=== PATIENT | female | born 1950 | race Caucasian/White ===

== ENCOUNTER 2021-04-02 10:33 | Outpatient (CLI) | payer MEDICARE, SELFPAY ==
--- NOTE | 2021-04-02 11:26 | N.ONRAD NP_ITS ---
Radiation Oncology Consultation Patient Name: Teresa Eid Date of : 1950 Date of Service: 04/02/2021 Attending Physician: Alvaro Mcfadden M.D. Teresa Eid was seen in consultation this morning at the request of Marcus. Hernandez D.O. for consideration of adjuvant breast radiotherapy for the management of a recently diagnosed early stage breast cancer. A diagnostic mammogram ordered on December 11, 2020 because of a palpable right breast mass identified architectural distortion measuring 4 cm the 10 o'clock position 5 to 6 cm from the nipple. Ultrasonography confirmed a hypoechoic lesion with posterior acoustic shadowing within the right breast at the 10 o'clock position, 10 cm from the nipple, measuring 3.3 cm x 2.5 cm x 4.8 cm. No suspicious adenopathy was described. An ultrasound-guided core biopsy completed on January 01, 2021 diagnosed a grade II invasive lobular carcinoma associated with a small foci of LCIS. The breast cancer prognostic profile revealed estrogen receptor (100%) and progesterone receptor (100%) positivity while negative for HER2 (by IHC). An MRI of the breasts requested on January 18, 2021 revealed an 8 cm x 4 cm x 4.7 cm mass within the right breast, 8 cm from the nipple that corresponded to the biopsy-proven lesion. No suspicious enhancing masses reported in the left breast. A bilateral simple mastectomy with right axillary sentinel lymph node biopsy was performed by Marcus. Hernandez D.O. at [facility] in [place], [place] on February 01, 2021. The pathology report (requested from the outside hospital and personally reviewed in [facility]) confirmed a 5.2 cm, grade 2 invasive lobular carcinoma with LCIS present. Surgical margins were negative. A total of two sentinel lymph nodes were harvested with one macrometastasis measuring 6 mm with extranodal extension identified. A right axillary lymph node dissection of levels I and II was completed on February 20, 2021. An additional 21 benign lymph nodes were identified. She was evaluated today for adjuvant radiotherapy. I discussed the [place] [employer] on Cancer Staging and specifically the patient's pathologic stage IIA (T3N1a) breast cancer, I also reviewed the National Comprehensive Cancer Network Guidelines endorsing adjuvant radiotherapy and summarized the classic studies by the [place] [employer] [facility] [facility] and the Early Breast Cancer Trialists??? Collaborative Group. She is aware that these studies demonstrated an overall survival improvement in patients treated with post-mastectomy radiotherapy. Before initiation of treatment, I will order an Oncotype DX recurrence score as per NCCN Guidelines I would recommend a 5 week course of chest wall and regional lymph node radiotherapy. A computed tomographic scan with contrast in the treatment position will be acquired for radiotherapy planning. The potential toxicities of postmastectomy radiotherapy were also addressed. The patient has verbalized understanding would like to proceed as recommended. The patient???s medical treatment has been discussed with Sammy Ng D.O. Signed by: Dr. Alvaro Mcfadden 04/02/2021 11:26:10 AM
== END 2021-04-02 10:34 | disposition home or self-care (01) ==
LOC: ONCMED 10:42
PROVIDERS: PCP Family Medicine; Visit Provider Radiology Radiation Oncology
DX: C50.911 Malignant neoplasm of unspecified site of right female breast (principal)
CPT/HCPCS: 99205

== ENCOUNTER → 2021-04-29 13:45 | Outpatient (BNVA) | payer MEDICARE, SELFPAY | PROVIDERS: PCP Family Medicine; Visit Provider Radiology Radiation Oncology | DX: C50.919 Malignant neoplasm of unspecified site of unspecified female breast (principal) | CPT/HCPCS: 80053; 85025 ==

== ENCOUNTER 2021-05-20 07:24 | Outpatient (RCR) | payer MEDICARE, SELFPAY ==
--- NOTE | 2021-05-02 | CT_ITS ---
Radiation Therapy Planning CT images; total exam DLP: 629.25 mGy-cm MTDD
[2021-05-02] MEDS: iodixanol 320 mg/mL 100mL Btl (RAD THERAPY ONLY) IV (10:33)
--- NOTE | 2021-05-06 18:05 | ONC CON_ITS ---
Dr. Ovalles New Patient Note Patient: Teresa Eid Unit #: [id number]: 1950 Dicatated By: Chen Ovalles M.D.Date of Visit: May 06, 2021 Onc MED New Patient/Consult Referring Physician: Dr. Sammy gN D.O. History of Present Illness: Ms. Teresa Eid, is a 70-year-old female with month-long history of right breast mass, as per patient she never had mammogram done in the past until on December 11, 2020 which showed architectural distortion measuring 4 cm at 10 o'clock position, ultrasound confirmed a hypoechoic lesion with posterior acoustic shadowing within the right breast measuring 3.3 x 2.5 x 4.8 cm, subsequently underwent ultrasound-guided core biopsy on January 01, 2021 which confirmed grade 2 invasive lobular carcinoma associated with small foci of LCIS, ER 100% positive OK 100% positive and HER-2/collette negative. On January 18, 2021 she underwent MRI scan of the bilateral breast which confirmed 8 cm x 4 cm x 4.7 cm mass within the right breast, 8 cm from the nipple and no suspicious enhancing mass reported in the left breast ,Subsequently underwent bilateral mastectomy with right sentinel lymph node biopsy on February 01, 2021 and final pathology report showed ER 97% positive OK 91% positive, HER-2/collette negative, Confirmed 5.2 cm invasive lobular carcinoma with LCIS present with clear surgical margin, 2 lymph nodes were identified with 1 confirmed macrometastasis measuring 6 mm with extranodal extension. Subsequently underwent right axillary lymph node dissection of level 1 and 2 done on February 20, 2021 and additional 21 lymph nodes were removed and showed no evidence of malignancy, pathological stage IIa, (T3N1a) Patient denies any specific complaint except mild discomfort in her right anterior/axillary area since surgery but no overlying skin changes, denies any fever chills, denies any nausea or vomiting denies any diarrhea or constipation, denies any weight loss, patient has already seen radiation oncology and postmastectomy radiation therapy to right chest wall and regional lymph node is under consideration. Past Medical History: Ms. iEd's medical history consists of calculus of kidney, cerebrovascular disease, chronic renal insufficiency, gastroesophageal reflux disease, history of shingles, hypertension, post herpetic neuralgia, restless leg syndrome, and stroke (x3). Past Surgical History: Ms. Eid's surgical/procedural history consists of appendectomy, bladder suspension, breast biopsy, cataract excision, hysterectomy, knee arthroscopy, mastectomy - bilateral, and total knee arthroplasty. Medications: Aspirin 1 Tablet (of 81 mg) Tablet, enteric coated Oral daily, Gabapentin 2 Capsule (of 300 mg) Oral t.i.d. Allergies: No Known Allergies. Social History: Ms. Eid is single. Ms. Eid no longer smokes but had smoked 1.0 pack/day. She has no history of drinking. quit smoking in 1974. Family History: There is no documented family history. Review Of Symptoms: Review of Systems is not available for this patient. Vital Signs: Performed on May 06, 2021 16:20: 3, 0, 32.35 (HIGH), 1.77 sq.m, 61.00 in, 95 % (LOW), 82 /min, 18 /min, 136/86 mm(hg), 97.2 F (LOW), and 171.2 lbs (HIGH). Performance Status: 0 - Fully active, able to carry on all predisease activities without restrictions. (ECOG) Physical Examination: Respiratory - Lungs are clear to auscultation, Cardiovascular - Regular rate and rhythm of heart, Breasts - Bilateral mastectomy, with Well-healed scars, Gastrointestinal - Soft, bowel sounds present, Extremities - No visible edema. Lab/Imaging: Most recent lab results are not available for this patient. Impression: Grade 2, invasive lobular carcinoma with LCIS per bilateral mastectomy done February 01, 2021 showed 5.2 cm invasive mass with LCIS, clear surgical margins 1/2 lymph node positive for metastatic disease, macro metastasis measuring 6 mm with extranodal extension, subsequently underwent right axillary lymph node dissection of level 1 and 2 and 21 lymph nodes were identified showed no evidence of metastatic disease. Pathological stage IIa (T3 N1a,MX) Arthritis, chronic renal insufficiency Cerebrovascular disease, strokes x3 last one in 2001. GERD HTN Post herpetic neuralgia Restless leg syndrome Plan: Discussed with patient regarding her disease status and treatment options, patient has stage IIa disease with the right breast primary being more than 5 cm,And positive lymph node, underwent bilateral mastectomy,Including prophylactic left simple mastectomy., Oncotype DX was done on April 15, 2021 which shows recurrence score of 3 means no apparent benefit from chemotherapy and distant recurrence risk at 9-year with hormone therapy is about 10%. Based on her Oncotype DX report, we will recommend adjuvant therapy with aromatase inhibitor, Arimidex 1 mg p.o. daily for 5 years, as patient has history of arthritis and sometimes in some patient Arimidex can cause musculoskeletal discomfort, so we will try it for 1 month, if tolerated we will continue for total 5 years if not, we may switch her to another agent. Patient has already seen radiation oncology for postmastectomy radiation therapy for tumor size more than 5 cm, probably will be starting within this week. All the side effect possible benefits associated with hormonal therapy especially with Arimidex were discussed in detail including but not limited to, hot flashes, musculoskeletal discomfort, bone demineralization, mood swings, were mentioned, further teaching will be done by chemotherapy nurse, Patient will return to clinic in 1 month with CBC CMP Signed By: Chen Ovalles M.D. <<Signature on File>>
--- NOTE | 2021-05-14 15:26 | ONCRAD TMN_ITS ---
Radiation Oncology Treatment Management Note Patient Name: Teresa Eid Date of : 1950 Date of Service: 05/14/2021 Attending Physician: Alvaro Mcfadden M.D. Teresa Eid is a 70 year-old white female diagnosed with a pathologic stage IIA (T3N1a) lobular carcinoma of the right breast. A diagnostic mammogram ordered on December 11, 2020 because of a palpable right breast mass identified architectural distortion measuring 4 cm the 10 o'clock position 5 to 6 cm from the nipple. Ultrasonography confirmed a hypoechoic lesion with posterior acoustic shadowing within the right breast at the 10 o'clock position, 10 cm from the nipple, measuring 3.3 cm x 2.5 cm x 4.8 cm. No suspicious adenopathy was described. An ultrasound-guided core biopsy completed on January 01, 2021 diagnosed a grade II invasive lobular carcinoma associated with a small foci of LCIS. The breast cancer prognostic profile revealed estrogen receptor (100%) and progesterone receptor (100%) positivity while negative for HER2 (by IHC). An MRI of the breasts requested on January 18, 2021 revealed an 8 cm x 4 cm x 4.7 cm mass within the right breast, 8 cm from the nipple that corresponded to the biopsy-proven lesion. No suspicious enhancing masses reported in the left breast. A bilateral simple mastectomy with right axillary sentinel lymph node biopsy was performed by Marcus. Hernandez D.O. at [facility] in [place], [place] on February 01, 2021. The pathology report confirmed a 5.2 cm, grade 2 invasive lobular carcinoma with LCIS present. Surgical margins were negative. A total of two sentinel lymph nodes were harvested with one macrometastasis measuring 6 mm with extranodal extension identified. A right axillary lymph node dissection of levels I and II was completed on February 20, 2021. An additional 21 benign lymph nodes were identified. She has received 10 Gy of a prescribed 50 Gy delivered with a 3D conformal radiotherapy plan utilizing opposed tangential portal pina matched to supraclavicular fossa and PAB ports. Upon review of systems, she denied any complaints related to radiotherapy. On physical examination, the patient weighed 168 lbs. Her temperature was 96.8 ???F and the blood pressure was 133/89 mmHg. Her pulse was 90 bpm and her respiratory rate was 20. There was no erythema within the treatment pina of the left chest wall. Continue right chest wall and regional lymph node irradiation as prescribed. Signed by: Dr. Alvaro Mcfadden 05/14/2021 3:25:32 PM
== END 2021-05-20 23:59 | disposition home or self-care (01) ==
LOC: ONCMED 07:24
PROVIDERS: PCP Family Medicine; Visit Provider Radiology Radiation Oncology
DX: Z51.0 Encounter for antineoplastic radiation therapy (principal); C50.411 Malignant neoplasm of upper-outer quadrant of right female breast; Z17.0 Estrogen receptor positive status [ER+]; Z90.13 Acquired absence of bilateral breasts and nipples; M19.90 Unspecified osteoarthritis, unspecified site; N28.9 Disorder of kidney and ureter, unspecified; K21.9 Gastro-esophageal reflux disease without esophagitis; I10 Essential (primary) hypertension; G58.8 Other specified mononeuropathies; G25.81 Restless legs syndrome; Z86.73 Personal history of transient ischemic attack (TIA), and cerebral infarction without residual deficits; Z79.899 Other long term (current) drug therapy; Z79.811 Long term (current) use of aromatase inhibitors
CPT/HCPCS: 77290; 77295; 77300; 77334; 77387; 77412; 99205; Q9967

== ENCOUNTER 2021-06-12 06:48 | Outpatient (RCR) | payer MEDICARE, SELFPAY ==
--- NOTE | 2021-05-21 15:26 | ONCRAD TMN_ITS ---
Radiation Oncology Treatment Management Note Patient Name: Teresa Eid Date of : 1950 Date of Service: 05/21/2021 Attending Physician: Alvaro Mcfadden M.D. Teresa Eid is a 70 year-old white female diagnosed with a pathologic stage IIA (T3N1a) lobular carcinoma of the right breast. A diagnostic mammogram ordered on December 11, 2020 because of a palpable right breast mass identified architectural distortion measuring 4 cm the 10 o'clock position 5 to 6 cm from the nipple. Ultrasonography confirmed a hypoechoic lesion with posterior acoustic shadowing within the right breast at the 10 o'clock position, 10 cm from the nipple, measuring 3.3 cm x 2.5 cm x 4.8 cm. No suspicious adenopathy was described. An ultrasound-guided core biopsy completed on January 01, 2021 diagnosed a grade II invasive lobular carcinoma associated with a small foci of LCIS. The breast cancer prognostic profile revealed estrogen receptor (100%) and progesterone receptor (100%) positivity while negative for HER2 (by IHC). An MRI of the breasts requested on January 18, 2021 revealed an 8 cm x 4 cm x 4.7 cm mass within the right breast, 8 cm from the nipple that corresponded to the biopsy-proven lesion. No suspicious enhancing masses reported in the left breast. A bilateral simple mastectomy with right axillary sentinel lymph node biopsy was performed by Marcus. Hernandez D.O. at [facility] in [place], [place] on February 01, 2021. The pathology report confirmed a 5.2 cm, grade 2 invasive lobular carcinoma with LCIS present. Surgical margins were negative. A total of two sentinel lymph nodes were harvested with one macrometastasis measuring 6 mm with extranodal extension identified. A right axillary lymph node dissection of levels I and II was completed on February 20, 2021. An additional 21 benign lymph nodes were identified. She has received 18 Gy of a prescribed 50 Gy delivered with a 3D conformal radiotherapy plan utilizing opposed tangential portal pina matched to supraclavicular fossa and PAB ports. Upon review of systems, she denied any complaints related to radiotherapy. On physical examination, the patient weighed 168 lbs. Her temperature was 98.3 ???F and the blood pressure was 155/88 mmHg. Her pulse was 74 bpm and the respiratory rate was 20. There was no erythema within the treatment pina of the left chest wall. Continue right chest wall and regional lymph node irradiation as planned. Signed by: Dr. Alvaro Mcfadden 05/21/2021 3:24:54 PM
--- NOTE | 2021-05-28 15:37 | ONCRAD TMN_ITS ---
Radiation Oncology Treatment Management Note Patient Name: Teresa Eid Date of : 1950 Date of Service: 05/28/2021 Attending Physician: Alvaro Mcfadden M.D. Teresa Eid is a 70 year-old white female diagnosed with a pathologic stage IIA (T3N1a) lobular carcinoma of the right breast. A diagnostic mammogram ordered on December 11, 2020 because of a palpable right breast mass identified architectural distortion measuring 4 cm the 10 o'clock position 5 to 6 cm from the nipple. Ultrasonography confirmed a hypoechoic lesion with posterior acoustic shadowing within the right breast at the 10 o'clock position, 10 cm from the nipple, measuring 3.3 cm x 2.5 cm x 4.8 cm. No suspicious adenopathy was described. An ultrasound-guided core biopsy completed on January 01, 2021 diagnosed a grade II invasive lobular carcinoma associated with a small foci of LCIS. The breast cancer prognostic profile revealed estrogen receptor (100%) and progesterone receptor (100%) positivity while negative for HER2 (by IHC). An MRI of the breasts requested on January 18, 2021 revealed an 8 cm x 4 cm x 4.7 cm mass within the right breast, 8 cm from the nipple that corresponded to the biopsy-proven lesion. No suspicious enhancing masses reported in the left breast. A bilateral simple mastectomy with right axillary sentinel lymph node biopsy was performed by Marcus. Hernandez D.O. at [facility] in [place], [place] on February 01, 2021. The pathology report confirmed a 5.2 cm, grade 2 invasive lobular carcinoma with LCIS present. Surgical margins were negative. A total of two sentinel lymph nodes were harvested with one macrometastasis measuring 6 mm with extranodal extension identified. A right axillary lymph node dissection of levels I and II was completed on February 20, 2021. An additional 21 benign lymph nodes were identified. She has received 28 Gy of a prescribed 50 Gy delivered with a 3D conformal radiotherapy plan utilizing opposed tangential portal pina matched to supraclavicular fossa and PAB ports. Upon review of systems, she denied any complaints related to radiotherapy. On physical examination, the patient weighed 165 lbs. Her temperature was 97.6 ???F and the blood pressure was 138/90 mmHg. Her pulse was 64 bpm and the respiratory rate was 16. There was no erythema within the treatment pina of the right chest wall. Continue right chest wall and regional lymph node irradiation as prescribed. Signed by: Dr. Alvaro Mcfadden 05/28/2021 3:35:37 PM
[2021-06-03 14:55] LABS: Basophils % 0.4 %; Eosinophils # 0.2 10^3/uL (0.0-0.8); Eosinophils % 3.3 %; Hematocrit 40.7 % (37.0-47.0); Hemoglobin 12.5 g/dL (11.5-15.3); Lymphocytes # 0.7 10^3/uL (0.8-4.8); Lymphocytes % 11.4 %; Mean Corpuscular HGB Conc 30.7 g/dL (30.0-36.0); Mean Corpuscular Hemoglobin 28.5 pg (28.0-34.0); Mean Corpuscular Volume 92.7 fl (81-99); Mean Platelet Volume 11.3 fL (7.4-10.4); Monocytes # 0.7 10^3/uL (0.2-0.9); Monocytes % 11.8 %; Neutrophils # 4.15 10^3/uL (1.8-7.7); Neutrophils % 72.9 %; Nucleated Red Blood Cells % 0 %; Platelet Count 250 10^3/cmm (130-400); Red Blood Count 4.39 10^6/uL (4.1-5.3); Red Cell Distribution Width 14.3 % (12.1-15.1); White Blood Count 5.7 10^3/uL (4.0-10.0)
[2021-06-03 15:28] LABS: Alanine Aminotransferase 15 U/L (0-33); Albumin Level 4.2 g/dL (3.5-5.2); Alkaline Phosphatase 73 IU/L (35-105); Blood Urea Nitrogen 21 mg/dL (8-23); Calcium 9.8 mg/dL (8.5-10.5); Carbon Dioxide 28 mmol/L (22-29); Chloride 103 mmol/L (98-107); Globulin 3.8 g/dL (1.3-4.6); Glomerular Filtration Rate 71.1 mL/min (90-130); Glucose 105 mg/dL (65-115); Osmolality Calculated 295 mOsm/kg (285-295); Sodium 141 mmol/L (136-145); Total Bilirubin 0.2 mg/dL (0.15-1.2)
[2021-06-03 15:29] LABS: Aspartate Amino Transferase 25 U/L (0-32)
--- NOTE | 2021-06-04 13:38 | ONCRAD TMN_ITS ---
Radiation Oncology Weekly Treatment Management Patient: Stanton Diego MR#: [id number] : 1950> Attending Physician: Dr. Dom Gates Date of Service: 06/04/2021 Referring Physician(s) : Dr. Sammy Ng Diagnosis: C50.411 - Malignant neoplasm of upper-outer quadrant of right female breast, Diagnosed 01/01/2021 (Active) Stage IIA, T3, pN1a, M0, G2, HER2 Neg, ER Pos, WV P Radiotherapy to date: Course: PMRT 2021, Treatment Site: PMRT - Rt Chest Wall, Ref. ID: [id number], Energy: 15X/6X, Dose/Fx (cGy): 200, #Fx: 25, Dose Correction (cGy): 0, Total Dose (cGy): 3,800, Start Date: 05/08/2021, End Date: 06/04/2021, Elapsed Days: 27 Treatment Site: Rt Supraclavicular Fossa, Ref. ID: [id number], Energy: 15X, Dose/Fx (cGy): 200, #Fx: 25, Dose Correction (cGy): 0, Total Dose (cGy): 3,800, Start Date: 05/08/2021, End Date: 06/04/2021, Elapsed Days: 27 Reason for visit: The patient is being seen today as part of their regularly scheduled weekly on treatment visits to assess for acute toxicities from radiotherapy. Review of Systems: Energy level and appetite are normal. No unusual pain. No complaints in the treatment area. Vital Signs: Physical Exam: The right chest wall has no significant erythema. No surface lesions in the area. Palpation of the skin reveals no tenderness. No subcutaneous nodularity. The surgical scar is intact. There is slight generalized firmness of the tissue in the area. (The patient states the induration is slowly improving). The right arm has an excellent range of motion. There is no right axillary lymphadenopathy. No lymphedema. Imaging: Radiation therapy imaging related to accurate target localization (i.e. KV, MV and CBCT) was reviewed. Appropriate changes, if any, were made to ensure treatment accuracy. Plan: Continue treatment according to prescription. Signed by: Dr. Dom Gates 06/04/2021 1:36:47 PM
--- NOTE | 2021-06-04 13:41 | ONC FU_ITS ---
Dr. Ovalles follow up note Patient: Teresa Eid < Unit #: [id number]: 1950 Dicatated By: Chen Ovalles M.D.Date of Visit:Jun 04, 2021 Onc Med Follow-up/Prog Note History of Present Illness: Ms. Teresa Eid, is a 70-year-old female with month-long history of right breast mass, as per patient she never had mammogram done in the past until on December 11, 2020 which showed architectural distortion measuring 4 cm at 10 o'clock position, ultrasound confirmed a hypoechoic lesion with posterior acoustic shadowing within the right breast measuring 3.3 x 2.5 x 4.8 cm, subsequently underwent ultrasound-guided core biopsy on January 01, 2021 which confirmed grade 2 invasive lobular carcinoma associated with small foci of LCIS, ER 100% positive MN 100% positive and HER-2/collette negative. On January 18, 2021 she underwent MRI scan of the bilateral breast which confirmed 8 cm x 4 cm x 4.7 cm mass within the right breast, 8 cm from the nipple and no suspicious enhancing mass reported in the left breast ,Subsequently underwent bilateral mastectomy with right sentinel lymph node biopsy on February 01, 2021 and final pathology report showed ER 97% positive MN 91% positive, HER-2/collette negative, Confirmed 5.2 cm invasive lobular carcinoma with LCIS present with clear surgical margin, 2 lymph nodes were identified with 1 confirmed macrometastasis measuring 6 mm with extranodal extension. Subsequently underwent right axillary lymph node dissection of level 1 and 2 done on February 20, 2021 and additional 21 lymph nodes were removed and showed no evidence of malignancy, pathological stage IIa, (T3N1a) , Oncotype DX score is 3, started on Arimidex 1 mg p.o. daily for 5 years on 08/03/2021 Came for follow-up, denies any specific complaints, no fever chills, no nausea or vomiting, no diarrhea constipation, no worsening of mild musculoskeletal discomfort, tolerating daily Arimidex well, also radiation therapy to right chest wall. Medications: Aspirin 1 Tablet (of 81 mg) Tablet, enteric coated Oral daily, Gabapentin 2 Capsule (of 300 mg) Oral t.i.d. Allergies: No Known Allergies. Review of Systems: Review of Systems is not available for this patient. Vital Signs: Vitals are not available for this patient. Performance Status: 0 - Fully active, able to carry on all predisease activities without restrictions. (ECOG) Physical Examination: Respiratory - Lungs are clear to auscultation, Cardiovascular - Regular rate and rhythm of heart, Gastrointestinal - Soft, bowel sounds present, Extremities - No visible edema. Lab/Imaging: Most recent lab results are not available for this patient. Impression: Grade 2, invasive lobular carcinoma with LCIS per bilateral mastectomy done February 01, 2021 showed 5.2 cm invasive mass with LCIS, clear surgical margins 1/2 lymph node positive for metastatic disease, macro metastasis measuring 6 mm with extranodal extension, subsequently underwent right axillary lymph node dissection of level 1 and 2 and 21 lymph nodes were identified showed no evidence of metastatic disease. Pathological stage IIa (T3 N1a,MX) ER 100% positive MN 100% positive and HER-2/collette negative. Oncotype DX score is 3, started on Arimidex 1 mg p.o. daily for 5 years on 08/03/2021 Postmastectomy radiation therapy Arthritis, chronic renal insufficiency Cerebrovascular disease, strokes x3 last one in 2001. GERD HTN Post herpetic neuralgia Restless leg syndrome Plan: Discussed with patient regarding her labs white blood count 5.7 hemoglobin 12.5 hematocrit 40.7 platelets 250,000 CMP within normal limits Clinically, patient doing well with no new signs suggestive of recurrence of disease, tolerating Arimidex 1 mg p.o. daily well, patient was advised to add vitamin D/calcium supplement. She is also receiving radiation therapy to her right breast, tolerating well. We will give her prescription for Arimidex 1 mg p.o. daily and then she will return to clinic in 3 months with CBC CMP. Signed By: Chen Ovalles M.D. <<Signature on File>>
--- NOTE | 2021-06-11 15:22 | ONCRAD TMN_ITS ---
Radiation Oncology Treatment Management Note Patient Name: Teresa Eid Date of : 1950 Date of Service: 06/11/2021 Attending Physician: Alvaro Mcfadden M.D. Teresa Eid is a 70 year-old white female diagnosed with a pathologic stage IIA (T3N1a) lobular carcinoma of the right breast. A diagnostic mammogram ordered on December 11, 2020 because of a palpable right breast mass identified architectural distortion measuring 4 cm the 10 o'clock position 5 to 6 cm from the nipple. Ultrasonography confirmed a hypoechoic lesion with posterior acoustic shadowing within the right breast at the 10 o'clock position, 10 cm from the nipple, measuring 3.3 cm x 2.5 cm x 4.8 cm. No suspicious adenopathy was described. An ultrasound-guided core biopsy completed on January 01, 2021 diagnosed a grade II invasive lobular carcinoma associated with a small foci of LCIS. The breast cancer prognostic profile revealed estrogen receptor (100%) and progesterone receptor (100%) positivity while negative for HER2 (by IHC). An MRI of the breasts requested on January 18, 2021 revealed an 8 cm x 4 cm x 4.7 cm mass within the right breast, 8 cm from the nipple that corresponded to the biopsy-proven lesion. No suspicious enhancing masses reported in the left breast. A bilateral simple mastectomy with right axillary sentinel lymph node biopsy was performed by Marcus. Hernandez D.O. at [facility] in [place], [place] on February 01, 2021. The pathology report confirmed a 5.2 cm, grade 2 invasive lobular carcinoma with LCIS present. Surgical margins were negative. A total of two sentinel lymph nodes were harvested with one macrometastasis measuring 6 mm with extranodal extension identified. A right axillary lymph node dissection of levels I and II was completed on February 20, 2021. An additional 21 benign lymph nodes were identified. She has received 48 Gy of a prescribed 50 Gy delivered with a 3D conformal radiotherapy plan utilizing opposed tangential portal pina matched to supraclavicular fossa and PAB ports. Upon review of systems, she denied any complaints related to radiotherapy. On physical examination, the patient weighed 166 lbs. Her temperature was 97.7 ???F and the blood pressure was 151/97 mmHg. Her pulse was 77 bpm and the respiratory rate was 20. There was a grade I erythema within the treatment pina of the right chest wall. Continue right chest wall and regional lymph node irradiation as planned. Signed by: Dr. Alvaro Mcfadden 06/11/2021 3:20:51 PM
--- NOTE | 2021-06-12 14:51 | N.ONRD TS_ITS ---
Radiation OncologyTreatment Summary Patient Name: Teresa Eid Date of : 1950 Date of Service: 06/12/2021 Attending Physician: Alvaro Mcfadden M.D. Teresa Eid has completed post-mastectomy radiotherapy for the adjuvant management of a pathological stage IIA (T3N1a) lobular carcinoma of the right breast. A diagnostic mammogram ordered on December 11, 2020 because of a palpable right breast mass identified architectural distortion measuring 4 cm at the 10 o'clock position 5 to 6 cm from the nipple. Ultrasonography confirmed a hypoechoic lesion with posterior acoustic shadowing within the right breast at the 10 o'clock position, 10 cm from the nipple, measuring 3.3 cm x 2.5 cm x 4.8 cm. No suspicious adenopathy was described. An ultrasound-guided core biopsy completed on January 01, 2021 diagnosed a grade II, invasive lobular carcinoma associated with a small foci of LCIS. The breast cancer prognostic profile revealed estrogen receptor (100%) and progesterone receptor (100%) positivity while negative for HER2 (by IHC). An MRI of the breasts requested on January 18, 2021 revealed an 8 cm x 4 cm x 4.7 cm mass within the right breast, 8 cm from the nipple that corresponded to the biopsy-proven lesion. No suspicious enhancing masses reported in the left breast. A bilateral simple mastectomy with right axillary sentinel lymph node biopsy was performed by Marcus. Hernandez D.O. at [facility] in [place], [place] on February 01, 2021. The pathology report confirmed a 5.2 cm, grade 2 invasive lobular carcinoma with LCIS present. Surgical margins were negative. A total of two sentinel lymph nodes were harvested with one macrometastasis measuring 6 mm with extranodal extension identified. A right axillary lymph node dissection of levels I and II was completed on February 20, 2021. An additional 21 benign lymph nodes were identified. Daily radiotherapy was administered between the dates of May 08, 2021 through June 12, 2021. A prescribe dose of 50 Gy was delivered in 25 fractions encompassing 36 elapsed days. The right chest wall and regional lymph nodes were treated utilizing a 3-dimensional conformal radiotherapy plan with an opposed tangential portal field design matched to a supraclavicular and a posterior axillary boost pina. The medial tangential field utilized a 48??? gantry angle with an associated collimator angle of 0???. The field size measured 13 cm x 1.5 cm within the X-direction and 15 cm x 0 cm within the Y-direction. The measured SSD was 90.9 cm with the field delivering 94 monitor units with 15 MV energy photons. Complementary pina were incorporated in a tepoc-jk-sfvrn approach that apportioned 11 MU and 9 MU. An additional medial tangent port was incorporated with low energy photons allotting 23 MU. The lateral tangential field employed a gantry angle of 228??? and an associated collimator angle of 0???. The field size measured 1.5 cm x 13 cm within X-direction and 15 cm x 0 cm within the Y-direction. The measured SSD was 84.9 cm with the field administering 58 monitor units. An additional lateral tangential pina were arranged using a trpmj-vb-fnwmd technique allocating 5 MU, 7 MU, and 9 MU. An accessory lateral field was planned with 6 MV photon energy distributing 24 MU. The supraclavicular portal field utilized an JAZMIN port with a gantry angle of 15??? and an associated collimator angle 0???. The port size measured 8 cm x 6.9 cm within the X-direction and 0 cm x 7.5 cm within the Y-direction. The measured SSD was 93.5 cm with the port apportioning 166 monitor units with 15 MV photons prescribed. A supplemental field incorporated a wxcuz-jv-dyuxw technique was designed. An additional 21 monitor units were delivered. The posterior axillary boost field applied a gantry angle of 180??? with an associated collimator angle of 0???. The port size measured 4 cm x 8 cm within the X-direction and 0 cm x 7.5 cm within the Y-direction. The measured SSD was 87 cm with the port allocating 42 monitor units. High-energy photons were applied. All treatments were performed with the StarsVu linear accelerator with an isocentric technique. ???The dose was calculated by Anisotropic Analytic Algorithm with the plan normalized to deliver 95% of the prescription dose to 95% of the planning target volume. Signed by: Alvaro Mcfadden 07/11/2021 3:22:16 PM
== END 2021-06-20 23:59 | disposition home or self-care (01) ==
LOC: ONCMED 06:48
PROVIDERS: Internal Medicine Hematology & Oncology; PCP Family Medicine; Visit Provider Radiology Radiation Oncology
DX: Z51.0 Encounter for antineoplastic radiation therapy (principal); C50.811 Malignant neoplasm of overlapping sites of right female breast; C50.812 Malignant neoplasm of overlapping sites of left female breast; Z17.0 Estrogen receptor positive status [ER+]; Z90.13 Acquired absence of bilateral breasts and nipples; M19.90 Unspecified osteoarthritis, unspecified site; N18.9 Chronic kidney disease, unspecified; I12.9 Hypertensive chronic kidney disease with stage 1 through stage 4 chronic kidney disease, or unspecified chronic kidney disease; K21.9 Gastro-esophageal reflux disease without esophagitis; M79.2 Neuralgia and neuritis, unspecified; G25.81 Restless legs syndrome; Z86.73 Personal history of transient ischemic attack (TIA), and cerebral infarction without residual deficits; Z79.899 Other long term (current) drug therapy
CPT/HCPCS: 36415; 77336; 77387; 77412; 80053; 85025; 99214

== ENCOUNTER 2022-03-04 12:40 | Oncology outpatient (recurring) (ONCR) | payer MEDICARE, SELFPAY ==
[2022-03-04 13:17] LABS: Basophils % 0.5 %; Eosinophils # 0.2 10^3/uL (0.0-0.8); Eosinophils % 3.6 %; Hematocrit 42.3 % (37.0-47.0); Hemoglobin 13.2 g/dL (11.5-15.3); Lymphocytes % 16.7 %; Mean Corpuscular HGB Conc 31.2 g/dL (30.0-36.0); Mean Corpuscular Hemoglobin 29.1 pg (28.0-34.0); Mean Corpuscular Volume 93.4 fl (81-99); Mean Platelet Volume 11.4 fL (7.4-10.4); Monocytes # 0.6 10^3/uL (0.2-0.9); Monocytes % 10.7 %; Neutrophils # 3.95 10^3/uL (1.8-7.7); Nucleated Red Blood Cells % 0 %; Platelet Count 237 10^3/cmm (130-400); Red Blood Count 4.53 10^6/uL (4.1-5.3); Red Cell Distribution Width 13.1 % (12.1-15.1); White Blood Count 5.8 10^3/uL (4.0-10.0)
[2022-03-04 13:38] LABS: Albumin Level 4.3 g/dL (3.5-5.2); Alkaline Phosphatase 89 U/L (35-105); Blood Urea Nitrogen 16 mg/dL (8-23); Calcium 9.6 mg/dL (8.5-10.5); Carbon Dioxide 29 mmol/L (22-29); Chloride 105 mmol/L (98-107); Globulin 3.1 g/dL (1.3-4.6); Glomerular Filtration Rate 49.1 mL/min (90-130); Glucose 75 mg/dL (65-115); Osmolality Calculated 296 mOsm/kg (285-295); Sodium 143 mmol/L (136-145); Total Bilirubin 0.2 mg/dL (0.15-1.2); Total Protein 7.4 g/dL (6.6-8.7)
[2022-03-04 13:39] LABS: Anion Gap 13.6 (5-19); Aspartate Amino Transferase 19 U/L (0-32); Potassium 4.6 mmol/L (3.5-5.1)
[2022-03-04 14:00] LABS: Alanine Aminotransferase 15 U/L (0-33)
== END 2022-03-22 23:59 | disposition home or self-care (01) ==
PROVIDERS: PCP Family Medicine; Visit Provider Internal Medicine Hematology & Oncology
DX: C50.811 Malignant neoplasm of overlapping sites of right female breast (principal); Z17.0 Estrogen receptor positive status [ER+]; Z90.11 Acquired absence of right breast and nipple; Z79.818 Long term (current) use of other agents affecting estrogen receptors and estrogen levels; Z79.899 Other long term (current) drug therapy
CPT/HCPCS: 80053; 85025; 99214

== ENCOUNTER 2022-07-03 15:09 | Oncology outpatient (recurring) (ONCR) | payer MEDICARE, SELFPAY ==
[2022-07-03 15:37] LABS: Basophils % 0.3 %; Eosinophils # 0.3 10^3/uL (0.0-0.8); Eosinophils % 3.6 %; Hematocrit 41.6 % (37.0-47.0); Hemoglobin 12.8 g/dL (11.5-15.3); Lymphocytes # 0.9 10^3/uL (0.8-4.8); Lymphocytes % 11.3 %; Mean Corpuscular HGB Conc 30.8 g/dL (30.0-36.0); Mean Corpuscular Hemoglobin 28.3 pg (28.0-34.0); Mean Platelet Volume 10.7 fL (7.4-10.4); Monocytes # 0.7 10^3/uL (0.2-0.9); Monocytes % 9.5 %; Nucleated Red Blood Cells % 0 %; Platelet Count 246 10^3/cmm (130-400); Red Blood Count 4.52 10^6/uL (4.1-5.3); Red Cell Distribution Width 13.5 % (12.1-15.1); White Blood Count 7.6 10^3/uL (4.0-10.0)
[2022-07-03 15:57] LABS: Alanine Aminotransferase 17 U/L (0-33); Albumin Level 4.3 g/dL (3.5-5.2); Alkaline Phosphatase 78 U/L (35-105); Aspartate Amino Transferase 18 U/L (0-32); Blood Urea Nitrogen 28 mg/dL (8-23); Calcium 9.3 mg/dL (8.5-10.5); Carbon Dioxide 29 mmol/L (22-29); Chloride 105 mmol/L (98-107); Globulin 2.9 g/dL (1.3-4.6); Glucose 120 mg/dL (65-115); Osmolality Calculated 303 mOsm/kg (285-295); Sodium 143 mmol/L (136-145); Total Bilirubin 0.3 mg/dL (0.15-1.2); Total Protein 7.2 g/dL (6.6-8.7)
== END 2022-07-20 23:59 | disposition home or self-care (01) ==
PROVIDERS: PCP Family Medicine; Visit Provider Internal Medicine Hematology & Oncology
DX: C50.811 Malignant neoplasm of overlapping sites of right female breast (principal); Z17.0 Estrogen receptor positive status [ER+]; Z90.13 Acquired absence of bilateral breasts and nipples; Z79.811 Long term (current) use of aromatase inhibitors
CPT/HCPCS: 36415; 80053; 85025; 99214

== ENCOUNTER 2022-07-30 09:20 | Day surgery (SDC) | payer MEDICARE, SELFPAY ==
[2022-07-28 14:20] VITALS: BMI 31.6
[2022-07-30 10:05] VITALS: BP 167/92; PULSE 63; RESP 16; TEMP 36.1; O2SAT 92
[2022-07-30] MEDS: sodium chloride 0.9% 1,000 ML 30 ML IV (10:31)
--- NOTE | 2022-07-30 11:08 | ANES.PREANE2 ---
Pre-Anesthetic Assessment Height/Weight: Height 1.56 m Weight 77.111 kg Temp Pulse Resp BP Pulse Ox O2 Del Method 97 F L 63 16 167/92 92 Room Air 07/30/22 10:05 07/30/22 10:05 07/30/22 10:05 07/30/22 10:05 07/30/22 10:05 07/30/22 10:05 Preop Diagnosis: screening Operation Date: 07/30/22 11:00 Proposed Procedures p [id number] colon Z12.11(Not Applicable) - Luciano Torres DO Familial anesthetic complications: none Was Beta Kwaku taken within 24 hours: N/A Was Clonidine taken within 24 hours: N/A Last intake: Intake Last Liquid Date 07/29/22 Last Liquid Time 22:00 Last Solid Date 07/28/22 Last Solid Time 18:00 Last Intake: 22:00 Social No alcohol and No tobacco Exam alert, oriented x 3, clear to auscultation bilaterally and regular rate & rhythm Airway Submandibular: within normal limits Cervical ROM: within normal limits Mallampati: Class II Dentition: full Pulmonary None reported CV/HEM Hypertension None reported Hepatic None reported GI None reported Metabolic None reported Musc/skel Lower Back Pain and Osteoarthritis/DJD Neuropsych Transient Ischemic Attack (x3) Anesthetic Plan ASA status: 3 Anesthesia: MAC Medications/Allergies Home Medications Medication Instructions Recorded Confirmed Last Taken Type gabapentin 300 mg capsule 300 mg PO TID 30 days #90 caps 06/01/20 07/30/22 07/30/22 Rx anastrozole 1 mg tablet (Arimidex) 1 mg PO DAILY #30 tabs 01/29/22 07/30/22 07/30/22 Rx aspirin 81 mg tablet,delayed 81 mg PO DAILY 03/04/22 07/30/22 07/29/22 History release naepmggq-phe-yusy-FA-Ca carb-vit K 1 tab PO DAILY 07/28/22 07/30/22 07/29/22 History 18 mg iron-400 mcg-500 mg tablet Allergies Allergy/AdvReac Type Severity Reaction Status Date / Time No Known Allergies Allergy Verified 07/09/22 16:32 Current Medications Generic Name Dose Route Start Last Admin Trade Name Freq PRN Reason Stop Dose Admin Sodium Chloride 1,000 mls @ 30 mls/hr 07/30/22 10:00 05/10/23 10:31 Sodium Chloride 0.9% IV 07/31/22 09:59 30 mls/hr .Q24H MARISELA Administration PFSH Anesthesia Medical History Breast cancer HTN (hypertension) with goal to be determined Female Reproductive History Spontaneous abortions: No Data Anesthesia Cardiac Studies: No Data to Display
--- NOTE | 2022-07-30 11:38 | PM.HP ---
Providers/Chief Complaint Primary Care Provider: Demarcus Zamora Chief Complaint: Z12.11 History of Present Illness Teresa Eid is a 72 year old female here for a screening colonoscopy. She reports that she had a colonoscopy many years ago and did not have any polyps at that time. She reports that her grandmother did have colon cancer. Denies any abdominal pain, nausea, emesis, diarrhea, constipation, hematochezia and/or melena. Medications/Allergies Home Medications Medication Instructions Recorded Confirmed Last Taken Type gabapentin 300 mg capsule 300 mg PO TID 30 days #90 caps 06/01/20 07/30/22 07/30/22 Rx anastrozole 1 mg tablet (Arimidex) 1 mg PO DAILY #30 tabs 01/29/22 07/30/22 07/30/22 Rx aspirin 81 mg tablet,delayed 81 mg PO DAILY 03/04/22 07/30/22 07/29/22 History release ebxuhhpo-azc-qwre-FA-Ca carb-vit K 1 tab PO DAILY 07/28/22 07/30/22 07/29/22 History 18 mg iron-400 mcg-500 mg tablet Allergies Allergy/AdvReac Type Severity Reaction Status Date / Time No Known Allergies Allergy Verified 07/09/22 16:32 PFSH Acute PFSH: Medical History (Updated 07/30/22 @ 11:38 by Luciano Torres DO) Breast cancer HTN (hypertension) with goal to be determined Kidney stones Surgical History (Updated 07/30/22 @ 11:38 by Luciano Torres DO) History of appendectomy History of hysterectomy History of knee surgery Bilateral Female Reproductive History: Spontaneous abortions: No Vitals/I&O/Wt Last Vital Signs Temp 97 F L 07/30/22 10:05 Pulse 63 07/30/22 10:05 Resp 16 07/30/22 10:05 BP 167/92 07/30/22 10:05 Pulse Ox 92 07/30/22 10:05 O2 Del Method Room Air 07/30/22 10:05 Weight last 48 hrs Weight 170 lb A&P Assessment and plan (1) Colon cancer screening: Plan Colonoscopy The risks and benefits of the procedure, including bleeding, infection, intestinal perforation requiring surgery, missed lesion were explained to the patient. The patient is understanding of the risks and wishes to proceed. Attestations Medical Necessity Statement*: Home Coding Level of Care Code Acute Code for Chg Fwd Diagnoses Colon cancer screening Z12.11
[2022-07-30 12:02] VITALS: BP 125/78; PULSE 71; RESP 18; TEMP 36.1; O2SAT 97
[2022-07-30 12:07] VITALS: BP 134/92; PULSE 63; RESP 18; O2SAT 94
[2022-07-30 12:17] VITALS: BP 137/91; PULSE 65; RESP 18; O2SAT 92
--- NOTE | 2022-07-30 17:43 | ANE.PACU2 ---
Inpatient post-anesthesia follow up: Airway intact: Yes Vital signs: Temperature 97.0 F Pulse Rate 65 Respiratory Rate 18 Blood Pressure 137/91 Pulse Oximetry 92 Oxygen Delivery Me thod Room Air Oxygen Flow Rate 3 Fraction of Inspir ed Oxygen Hydration adequate: Yes Nausea and vomiting: No Pain level: 2 Mental status: Baseline
== END 2022-07-30 12:35 | disposition home or self-care (01) ==
PROVIDERS: PCP Family Medicine; Visit Provider Surgery
PROC: 0DJD8ZZ Inspection of Lower Intestinal Tract, Via Natural or Artificial Opening Endoscopic (ICD-10-PCS; CPT 45378; principal; 2022-07-30 11:00)
DX: Z80.0 Family history of malignant neoplasm of digestive organs (principal); I10 Essential (primary) hypertension; Z12.11 Encounter for screening for malignant neoplasm of colon; Z86.73 Personal history of transient ischemic attack (TIA), and cerebral infarction without residual deficits; Z79.82 Long term (current) use of aspirin; K57.30 Diverticulosis of large intestine without perforation or abscess without bleeding; D12.5 Benign neoplasm of sigmoid colon
CPT/HCPCS: 45385; 88305; J2704; J7030

== ENCOUNTER → 2022-08-26 17:00 | Outpatient (BNVA) | payer MEDICARE, SELFPAY | PROVIDERS: PCP Family Medicine; Visit Provider Surgery | DX: Z09 Encounter for follow-up examination after completed treatment for conditions other than malignant neoplasm (principal) | CPT/HCPCS: 99212 ==

== ENCOUNTER 2023-01-27 12:59 | Oncology outpatient (recurring) (ONCR) | payer MEDICARE, SELFPAY ==
[2023-01-27 13:09] VITALS: BP 152/91; PULSE 59; RESP 16; TEMP 36.8; O2SAT 91
[2023-01-27 13:30] LABS: Basophils % 0.3 %; Eosinophils # 0.1 10^3/uL (0.0-0.8); Eosinophils % 2.1 %; Hematocrit 42.8 % (36-47); Lymphocytes % 15.4 %; Mean Corpuscular HGB Conc 32.2 g/dL (30-55); Mean Corpuscular Hemoglobin 29.9 pg (27-33); Mean Corpuscular Volume 92.8 fl (85-98); Mean Platelet Volume 11.3 fL (7.4-10.4); Monocytes # 0.6 10^3/uL (0.2-0.9); Monocytes % 8.5 %; Neutrophils % 73.4 %; Nucleated Red Blood Cells % 0 %; Platelet Count 248 10^3/cmm (157-399); Red Blood Count 4.61 10^6/uL (3.85-5.65); Red Cell Distribution Width 13.4 % (12.1-15.1); White Blood Count 6.55 10^3/uL (3.29-11.43)
[2023-01-27 13:56] LABS: Alanine Aminotransferase 19 U/L (0-33); Albumin Level 4.3 g/dL (3.5-5.2); Alkaline Phosphatase 95 U/L (35-105); Anion Gap 13.4 (5-19); Aspartate Amino Transferase 21 U/L (0-32); Blood Urea Nitrogen 17 mg/dL (8-23); Calcium 9.7 mg/dL (8.5-10.5); Carbon Dioxide 28 mmol/L (22-29); Chloride 102 mmol/L (98-107); Globulin 3.2 g/dL (1.3-4.6); Glucose 129 mg/dL (65-115); Osmolality Calculated 291 mOsm/kg (285-295); Potassium 4.4 mmol/L (3.5-5.1); Sodium 139 mmol/L (136-145); Total Bilirubin 0.4 mg/dL (0.15-1.2); Total Protein 7.5 g/dL (6.6-8.7)
== END 2023-02-19 23:59 | disposition home or self-care (01) ==
PROVIDERS: Nurse Practitioner Family; PCP Family Medicine; Visit Provider Internal Medicine Hematology & Oncology
DX: C50.811 Malignant neoplasm of overlapping sites of right female breast (principal); Z17.0 Estrogen receptor positive status [ER+]; Z90.11 Acquired absence of right breast and nipple; Z79.818 Long term (current) use of other agents affecting estrogen receptors and estrogen levels; Z79.899 Other long term (current) drug therapy
CPT/HCPCS: 36415; 80053; 85025; 99214

== ENCOUNTER 2023-02-02 13:00 | Outpatient (CLI) | payer MEDICARE, SELFPAY | END 2023-02-02 13:01 | disposition home or self-care (01) | LOC: SLEEP 02-03 10:54 | PROVIDERS: PCP Family Medicine; Visit Provider Family Medicine | DX: G47.33 Obstructive sleep apnea (adult) (pediatric) (principal); G47.36 Sleep related hypoventilation in conditions classified elsewhere; G47.39 Other sleep apnea; Z87.891 Personal history of nicotine dependence; R05.9 Cough, unspecified; R06.83 Snoring; Z85.3 Personal history of malignant neoplasm of breast | CPT/HCPCS: G0399 ==

== ENCOUNTER 2023-02-25 21:47 | Emergency (ER) | payer MEDICARE, SELFPAY ==
[2023-02-25 21:48] VITALS: BP 208/104; PULSE 69; RESP 14; TEMP 36.9; O2SAT 91; BMI 32.1
[2023-02-25 22:25] VITALS: BP 200/105; PULSE 70; RESP 16; O2SAT 93
[2023-02-25 22:31] LABS: Add Urine Microscopic? NO; Charge for UA Resulting for Rev
[2023-02-25 22:39] LABS: Bilirubin Urine Neg (Negative); Blood Urine Neg (Negative); Glucose Urine UA Norm (Normal); Ketones Urine Negative (Negative); Leukocyte Esterase Urine Negative (Negative); Nitrate Urine Negative (Negative); Protein Urine Neg (Negative); Sulfosalicylic Acid Urine Negative (Negative); Urine Appearance Clear (CLEAR); Urine Color Light yellow (Yellow); Urobilinogen Urine Neg (Negative); pH Urine 8 (5-7)
--- NOTE | 2023-02-25 23:15 | ED_ITS ---
HPI - Abdominal Pain 2 General: Chief Complaint: Abdominal Pain Stated Complaint: abd low r side pain nasea Time Seen by Provider: 02/25/23 21:55 History of Present Illness: Patient presents to the ER with complaints of right lower quadrant pain radiating into her l her back. Patient [place] any dysuria urinary frequency fever chills cough cold diarrhea, patient complains of nausea. Patient does state the pain is worse when she pushes on it. Patient has had pain like this before but it never was this severe or lasted this long. Patient does have a history of kidney stones in the past had to be removed surgically. Review of Systems 2 General: Reports: 10 or more systems reviewed and unremarkable except in HPI and below PFSH ED 2 PFSH: Medical History Kidney stones Breast cancer HTN (hypertension) with goal to be determined Surgical History History of appendectomy History of hysterectomy History of knee surgery Bilateral Female Reproductive History: Spontaneous abortions: No Physical Exam 2 Const: COMMON NORMALS: no acute distress, average body habitus, patient oriented x3, no limitations, healthy appearing, alert and well nourished HENMT: COMMON NORMALS: normocephalic, atraumatic, hearing grossly normal bilaterally, external ears normal, Normal external nose present, moist oral mucous membranes and oropharynx normal HEAD & SCALP: normocephalic and atraumatic NOSE: Normal external nose present EXTERNAL EAR: Yes external ears normal Neck/C-Spine: COMMON NORMALS: no JVD Chest: COMMONS NORMALS: normal inspection of the chest and normal palpation of entire chest wall Resp: COMMON NORMALS: normal respiratory effort, No retractions, No use of accessory muscles and clear to auscultation bilaterally AUSCULTATION: clear to auscultation bilaterally Cardio: COMMON NORMALS: no JVD, regular rate, regular rhythm, S1 normal heart sound present, S2 normal heart sound present, No gallops present (Cardio), No clicks present (Cardio), No murmurs present (Cardio) and No rub (Cardio) R ATE: regular rate RHYTHM: regular rhythm HEART SOUNDS: S1 normal heart sound present and S2 normal heart sound present GI: COMMON NORMALS: Normal to inspection, nondistended, normoactive bowel sounds present, Soft to palpation, No hepatosplenomegaly present and no masses; negative for non-tender (Mildly tender to palpate over right lower quadrant) PALPATION: Yes Soft to palpation and Yes No hepatosplenomegaly present Neuro: COMMON NORMALS: patient oriented x3 SENSORIUM/ORIENTATION: Yes alert Course 2 Vital Signs: Vital signs: Vital Signs Temperature 98.5 F 02/25/23 21:48 Pulse Rate 68 02/26/23 01:51 Respiratory Rate 16 02/26/23 01:51 Blood Pressure 152/99 02/26/23 01:51 Pulse Oximetry 98 02/26/23 01:51 Oxygen Delivery Me thod Room Air 02/26/23 00:59 MDM - Abdominal Pain Medical Decision Making Patient presents to the ER with right lower quadrant pain radiating to her pelvis and her back. Lab work was obtained which was essentially unremarkable CT scan of the abdomen pelvis showed multiple kidney stones to open the kidney to down in the bladder. This results was discussed with the patient will be discharged home. Patient was given a prescription for Toradol and told to follow-up with her PCP and/or urologist in the next 7 days. Differential Diagnosis Likely abdominal pain; Unlikely acute appendicitis, calculus of kidney, constipation, diverticulitis, endometriosis, gastroenteritis, pancreatitis or small bowel obstruction Medical Records I reviewed the patient's medical records. Lab Data I reviewed the patient's lab results. 02/25/23 23:39 02/25/23 23:39 Labs/Radiology: Radiology Impressions Abdomen/Pelvis CT 02/26/23 00:28 IMPRESSION: 7 mm and 5 mm calculi in the right inferior renal pole with moderate right hydroureteronephrosis. Two small stones within the bladder, suggesting recent passage of additional stones. No ureteral calculi. Laboratory Results WBC 10.46 10^3/uL (3.29-11.43) 02/25/23 23:39 RBC 4.57 10^6/uL (3.85-5.65) 02/25/23 23:39 Hgb 13.50 g/dL (11.27-16.99) 02/25/23 23:39 Hct 42.6 % (36-47) 02/25/23 23:39 MCV 93.2 fl (85-98) 02/25/23 23:39 MCH 29.5 pg (27-33) 02/25/23 23:39 MCHC 31.7 g/dL (30-55) 02/25/23 23:39 RDW 13.2 % (12.1-15.1) 02/25/23 23:39 Plt Count 230 10^3/cmm (157-399) 02/25/23 23:39 MPV 10.8 fL (7.4-10.4) H 02/25/23 23:39 Neut % (Auto) 84.5 % 02/25/23 23:39 Lymph % (Auto) 8.0 % 02/25/23 23:39 [place] % (Auto) 5.7 % 02/25/23 23:39 Eos % (Auto) 0.9 % 02/25/23 23:39 Baso % (Auto) 0.3 % 02/25/23 23:39 Neut # (Auto) 8.84 10^3/uL (1.8-7.7) H 02/25/23 23:39 Lymph # (Auto) 0.8 10^3/uL (0.8-4.8) 02/25/23 23:39 [place] # (Auto) 0.6 10^3/uL (0.2-0.9) 02/25/23 23:39 Eos # (Auto) 0.1 10^3/uL (0.0-0.8) 02/25/23 23:39 Baso # (Auto) 0.0 10^3/uL (0.0-0.1) 02/25/23 23:39 Nucleated RBC % (auto) 0 % 02/25/23 23:39 Nucleated RBCs # 0.0 /100WBC 02/25/23 23:39 Sodium 135 mmol/L (136-145) L 02/25/23 23:39 Potassium 4.6 mmol/L (3.5-5.1) 02/25/23 23:39 Chloride 98 mmol/L (98-107) 02/25/23 23:39 Carbon Dioxide 27 mmol/L (22-29) 02/25/23 23:39 Anion Gap 14.6 (5-19) 02/25/23 23:39 BUN 17 mg/dL (8-23) 02/25/23 23:39 Creatinine 0.9 mg/dL (0.5-0.9) 02/25/23 23:39 GFR Calculation Not Reportable 02/25/23 23:39 Glucose 131 mg/dL (65-115) H 02/25/23 23:39 Calculated Osmolality 283 mOsm/kg (285-295) L 02/25/23 23:39 Calcium 9.8 mg/dL (8.5-10.5) 02/25/23 23:39 Total Bilirubin 0.3 mg/dL (0.15-1.2) 02/25/23 23:39 AST 26 U/L (0-32) 02/25/23 23:39 ALT 18 U/L (0-33) 02/25/23 23:39 Alkaline Phosphatase 109 U/L (35-105) H 02/25/23 23:39 Total Protein 7.9 g/dL (6.6-8.7) 02/25/23 23:39 Albumin 4.3 g/dL (3.5-5.2) 02/25/23 23:39 Globulin 3.6 g/dL (1.3-4.6) 02/25/23 23:39 Lipase 45 U/L (13-60) 02/25/23 23:39 Urine Color Light yellow (Yellow) 02/25/23 22:13 Urine Appearance Clear (CLEAR) 02/25/23 22:13 Urine pH 8 (5-7) H 02/25/23 22:13 Ur Specific [place] 1.010 (1.005-1.030) 02/25/23 22:13 Urine Protein Neg (Negative) 02/25/23 22:13 Urine Glucose (UA) Norm (Normal) 02/25/23 22:13 Urine Ketones Negative (Negative) 02/25/23 22:13 Urine Blood Neg (Negative) 02/25/23 22:13 Urine Nitrate Negative (Negative) 02/25/23 22:13 Urine Bilirubin Neg (Negative) 02/25/23 22:13 Prot Sulfosalicylic Acd Negative (Negative) 02/25/23 22:13 Urine Urobilinogen Neg mg/dL (Negative) 02/25/23 22:13 Ur Leukocyte Esterase Negative (Negative) 02/25/23 22:13 All radiology interpretation(s) finalized by discharge Discharge Plan Discharge Patient Disposition: Home Clinical Impression: Calculus of kidney Condition: Stable Prescriptions: New ketorolac 10 mg tablet 10 mg PO Q8H PRN (Reason: pain) Qty: 14 0RF No Action anastrozole 1 mg tablet See Rx Instructions .ROUTE .COMPLEX Qty: 30 5RF Dose Instruction: TAKE ONE TABLET BY MOUTH DAILY Rx Instructions: TAKE ONE TABLET BY MOUTH DAILY aspirin 81 mg tablet,delayed release (DR/EC) 81 mg PO DAILY gabapentin 300 mg capsule See Rx Instructions .ROUTE .COMPLEX Qty: 90 0RF Dose Instruction: TAKE ONE CAPSULE BY MOUTH THREE TIMES A DAY Rx Instructions: TAKE ONE CAPSULE BY MOUTH THREE TIMES A DAY ks-xz-gdpn-FA-Ca carb-vit K 18 mg iron-400 mcg-500 mg Tablet 1 tab PO DAILY Discharge Orders: Discharge ED (Routine); Ordered 02/26/23 Ordered By: Steve Larios Referrals: Demarcus Zamora [Primary Care Provider] - 1 week Patient Instructions: Kidney Stones Activity Restrictions/Additional Instructions: Please take your pain medicine as needed as directed. Please follow-up with your family practice physician in the next 7 to 10 days for further evaluation and treatment. Coding Level of Care Code ED Speech And Drama Teacher for Moshe Banda
[2023-02-25] MEDS: ketorolac 30 mg/mL INJ IVP (23:44)
[2023-02-25] MEDS: ondansetron 2 mg/ML SDV 2 mL 4 MG IVP (23:44)
[2023-02-25 23:46] LABS: Basophils % 0.3 %; Eosinophils # 0.1 10^3/uL (0.0-0.8); Eosinophils % 0.9 %; Hematocrit 42.6 % (36-47); Lymphocytes # 0.8 10^3/uL (0.8-4.8); Mean Corpuscular HGB Conc 31.7 g/dL (30-55); Mean Corpuscular Hemoglobin 29.5 pg (27-33); Mean Corpuscular Volume 93.2 fl (85-98); Mean Platelet Volume 10.8 fL (7.4-10.4); Monocytes # 0.6 10^3/uL (0.2-0.9); Monocytes % 5.7 %; Neutrophils # 8.84 10^3/uL (1.8-7.7); Neutrophils % 84.5 %; Nucleated Red Blood Cells % 0 %; Platelet Count 230 10^3/cmm (157-399); Red Blood Count 4.57 10^6/uL (3.85-5.65); Red Cell Distribution Width 13.2 % (12.1-15.1); White Blood Count 10.46 10^3/uL (3.29-11.43)
[2023-02-26 00:12] LABS: Alanine Aminotransferase 18 U/L (0-33); Albumin Level 4.3 g/dL (3.5-5.2); Alkaline Phosphatase 109 U/L (35-105); Blood Urea Nitrogen 17 mg/dL (8-23); Calcium 9.8 mg/dL (8.5-10.5); Carbon Dioxide 27 mmol/L (22-29); Chloride 98 mmol/L (98-107); Globulin 3.6 g/dL (1.3-4.6); Glucose 131 mg/dL (65-115); Lipase 45 U/L (13-60); Osmolality Calculated 283 mOsm/kg (285-295); Sodium 135 mmol/L (136-145); Total Bilirubin 0.3 mg/dL (0.15-1.2); Total Protein 7.9 g/dL (6.6-8.7)
[2023-02-26 00:26] LABS: Anion Gap 14.6 (5-19); Aspartate Amino Transferase 26 U/L (0-32); Potassium 4.6 mmol/L (3.5-5.1)
--- NOTE | 2023-02-26 00:28 | CTR_ITS ---
PROCEDURE INFORMATION: Exam: CT Abdomen And Pelvis With Contrast Exam date and time: 02/26/2023 12:43 AM Age: 72 years old Clinical indication: Abdominal pain; Localized; Right lower quadrant (rlq); Prior surgery; Surgery date: 6+ months; Surgery type: Appy as child; Additional info: Rlq abd pain TECHNIQUE: Imaging protocol: Computed tomography of the abdomen and pelvis with contrast. Radiation optimization: All CT scans at this facility use at least one of these dose optimization techniques: automated exposure control; mA and/or kV adjustment per patient size (includes targeted exams where dose is matched to clinical indication); or iterative reconstruction. Contrast material: OMNI 350; Contrast volume: 80 ml; Contrast route: INTRAVENOUS (IV); REPORTING DATA: Count of CT and Cardiac NM exams in prior 12 months: This patient has received 0 known CTs and 0 known cardiac nuclear medicine studies in the 12 months prior to the current study. COMPARISON: No relevant prior studies available. RADIATION DOSE METRICS: Total DLP (mGy-cm): 762.01 FINDINGS: Liver: Small hepatic cyst and additional subcentimeter hepatic hypodensity, too small to characterize. Hepatic steatosis. Gallbladder and bile ducts: No calcified stones. No biliary ductal dilation. No pericholecystic fluid. Pancreas: Pancreatic atrophy. No main duct dilation. Spleen: Unremarkable. Adrenal glands: Unremarkable. Kidneys and ureters: 7 mm and 5 mm calculi in the right inferior renal pole with moderate right hydroureteronephrosis. Slightly delayed right nephrogram. There also 2 small stones within the bladder, suggesting recent passage of additional stones. Stomach and bowel: Colonic diverticulosis without CT findings of acute diverticulitis. No bowel obstruction. Appendix: No evidence of appendicitis. Intraperitoneal space: Unremarkable. No free air. No significant fluid collection. Vasculature: Moderate aortic atherosclerosis. No aortic aneurysm. Lymph nodes: No enlarged lymph nodes. Urinary bladder: See Kidneys and ureters finding. Reproductive: Unremarkable as visualized. Bones/joints: No acute fracture. No aggressive osseous lesions. Soft tissues: Surgical clips in the right axilla/breast soft tissues. Small fat containing periumbilical hernia. CT/CT abdomen pelvis w con* [id number] IMPRESSION: 7 mm and 5 mm calculi in the right inferior renal pole with moderate right hydroureteronephrosis. Two small stones within the bladder, suggesting recent passage of additional stones. No ureteral calculi.
[2023-02-26] MEDS: iohexol 350 mg/mL 500 mL Btl (per mL) IV (00:47)
[2023-02-26 00:59] VITALS: BP 164/84; PULSE 69; RESP 18; O2SAT 91
[2023-02-26 01:51] VITALS: BP 152/99; PULSE 68; RESP 16; O2SAT 98
== END 2023-02-26 01:55 | disposition home or self-care (01) ==
PROVIDERS: Emergency Provider Emergency Medicine; PCP Family Medicine
DX: N13.2 Hydronephrosis with renal and ureteral calculous obstruction (principal); Z79.82 Long term (current) use of aspirin; Z87.442 Personal history of urinary calculi; I10 Essential (primary) hypertension; Z85.3 Personal history of malignant neoplasm of breast
CPT/HCPCS: 74177; 80053; 81003; 83690; 85025; 96374; 96375; 99285; J1885; J2405; Q9967

== ENCOUNTER 2023-06-03 20:00 | Outpatient (CLI) | payer MEDICARE, SELFPAY | END 2023-06-03 20:01 | disposition home or self-care (01) | LOC: SLEEP 06-04 06:21 | PROVIDERS: PCP Family Medicine; Visit Provider Family Medicine | DX: G47.33 Obstructive sleep apnea (adult) (pediatric) (principal) | CPT/HCPCS: 95811 ==

== ENCOUNTER 2023-09-09 09:28 | Oncology outpatient (recurring) (ONCR) | payer MEDICARE, SELFPAY ==
[2023-09-09 09:56] LABS: Basophils % 0.5 %; Eosinophils # 0.2 10^3/uL (0.0-0.8); Eosinophils % 4.2 %; Hematocrit 42.4 % (36-47); Lymphocytes # 0.9 10^3/uL (0.8-4.8); Lymphocytes % 15.1 %; Mean Corpuscular HGB Conc 31.8 g/dL (30-55); Mean Corpuscular Hemoglobin 29.4 pg (27-33); Mean Corpuscular Volume 92.4 fl (85-98); Mean Platelet Volume 11.1 fL (7.4-10.4); Monocytes # 0.5 10^3/uL (0.2-0.9); Monocytes % 9.5 %; Neutrophils # 3.98 10^3/uL (1.8-7.7); Neutrophils % 70.2 %; Nucleated Red Blood Cells % 0 %; Platelet Count 197 10^3/cmm (157-399); Red Blood Count 4.59 10^6/uL (3.85-5.65); Red Cell Distribution Width 13.7 % (12.1-15.1); White Blood Count 5.68 10^3/uL (3.29-11.43)
[2023-09-09 10:15] LABS: Alanine Aminotransferase 14 U/L (0-33); Albumin Level 3.9 g/dL (3.5-5.2); Alkaline Phosphatase 105 U/L (35-105); Anion Gap 12.4 (5-19); Aspartate Amino Transferase 18 U/L (0-32); Blood Urea Nitrogen 17 mg/dL (8-23); Carbon Dioxide 30 mmol/L (22-29); Chloride 103 mmol/L (98-107); Globulin 3.2 g/dL (1.3-4.6); Glucose 96 mg/dL (65-115); Osmolality Calculated 293 mOsm/kg (285-295); Potassium 4.4 mmol/L (3.5-5.1); Sodium 141 mmol/L (136-145); Total Bilirubin 0.4 mg/dL (0.15-1.2); Total Protein 7.1 g/dL (6.6-8.7)
== END 2023-09-20 23:59 | disposition home or self-care (01) ==
PROVIDERS: Nurse Practitioner Family; PCP Family Medicine; Visit Provider Internal Medicine Hematology & Oncology
DX: C50.811 Malignant neoplasm of overlapping sites of right female breast (principal)
CPT/HCPCS: 36415; 80053; 85025; 99214

== ENCOUNTER 2023-09-25 10:09 | Oncology outpatient (recurring) (ONCR) | payer MEDICARE, SELFPAY ==
--- NOTE | 2023-09-25 10:13 | CT_ITS ---
WS: [id number] CT chest w con* [id number] REASON FOR EXAM: mass in right axillary and right chest wall IV CONTRAST ADMINISTERED: 100 mL of Omnipaque 350@3 mL/s TOTAL EXAM DLP: 366.[address] scans at [facility] use at least one of these dose optimization techniques: automat ed exposure control; mA and/or kV adjustment per patient size (includes targeted exams where dose is matched to clinical indication); or iterative reconstruction. FINDINGS: There is small soft tissue density in the left mediastinum overlying the right mainstem bronchus, maggie ge 17 on the axial images and 19 on the coronal images, presumably a lymph node. Small soft tissue de nsity in the inferior right hilum image 26 on the axial images and image 19 on the coronal images, pr esumably a lymph node. These 2 findings are stable compared to the therapy planning CT scan of 2021. No significant pulmonary nodule or lung mass. No pleural abnormality. No bony abnormality. Subtle infiltrative changes in the latissimus dorsi muscle anterior to the lower third of the scapula . There is an irregularity of the muscle margin with spiculations into the fat. There is immediately adjacent surgical clip. This is best seen on coronal image 34. This appears to have been present on t he CT guided radiotherapy planning CT scan of 05/02/2021 and is unchanged. No other significant abnormality in no new finding or other interval change compared to the therapy p victorina CT scan of 05/02/2021. CT/CT chest w con* [id number] IMPRESSION: Abnormalities in the right mediastinum, right hilum, and right axillary region as described above these abnormalities appear to have been present on the previ ous examination and appear unchanged. The comparisons are somewhat limited in t hat the therapy planning images were not reconstructed in the coronal and sagit isaura planes.
[2023-09-25] MEDS: iohexol 350 mg/mL 500 mL Btl (per mL) IV (10:36)
== END 2023-10-21 23:59 | disposition home or self-care (01) ==
LOC: RAD 10:26 → ONCMED 10-06 07:46
PROVIDERS: PCP Family Medicine; Visit Provider Nurse Practitioner Family
DX: R07.89 Other chest pain (principal); C50.919 Malignant neoplasm of unspecified site of unspecified female breast; R93.89 Abnormal findings on diagnostic imaging of other specified body structures; Z53.9 Procedure and treatment not carried out, unspecified reason
CPT/HCPCS: 71260; Q9967

== ENCOUNTER 2024-03-10 13:08 | Oncology outpatient (recurring) (ONCR) | payer MEDICARE, SELFPAY ==
[2024-03-10 14:14] LABS: Basophils % 0.4 %; Eosinophils # 0.1 10^3/uL (0.0-0.8); Eosinophils % 1.8 %; Hematocrit 40.6 % (36-47); Lymphocytes % 14.7 %; Mean Corpuscular HGB Conc 31.5 g/dL (30-55); Mean Corpuscular Volume 95.1 fl (85-98); Mean Platelet Volume 10.7 fL (7.4-10.4); Monocytes # 0.6 10^3/uL (0.2-0.9); Monocytes % 9.5 %; Neutrophils # 4.95 10^3/uL (1.8-7.7); Neutrophils % 73.3 %; Nucleated Red Blood Cells % 0 %; Platelet Count 218 10^3/cmm (157-399); Red Blood Count 4.27 10^6/uL (3.85-5.65); Red Cell Distribution Width 13.2 % (12.1-15.1); White Blood Count 6.75 10^3/uL (3.29-11.43)
[2024-03-10 14:37] LABS: Alanine Aminotransferase 11 U/L (0-33); Alkaline Phosphatase 85 U/L (35-105); Anion Gap 12.5 (5-19); Aspartate Amino Transferase 17 U/L (0-32); Blood Urea Nitrogen 26 mg/dL (8-23); Calcium 9.2 mg/dL (8.5-10.5); Carbon Dioxide 27 mmol/L (22-29); Chloride 105 mmol/L (98-107); Glucose 117 mg/dL (65-115); Osmolality Calculated 296 mOsm/kg (285-295); Potassium 4.5 mmol/L (3.5-5.1); Sodium 140 mmol/L (136-145); Total Bilirubin 0.3 mg/dL (0.15-1.2)
== END 2024-03-22 23:59 | disposition home or self-care (01) ==
PROVIDERS: PCP Family Medicine; Visit Provider Nurse Practitioner Family
DX: R07.89 Other chest pain (principal); C50.919 Malignant neoplasm of unspecified site of unspecified female breast; R93.89 Abnormal findings on diagnostic imaging of other specified body structures; Z17.0 Estrogen receptor positive status [ER+]; Z90.11 Acquired absence of right breast and nipple; Z79.818 Long term (current) use of other agents affecting estrogen receptors and estrogen levels; Z79.899 Other long term (current) drug therapy
CPT/HCPCS: 36415; 80053; 85025; 99214

== ENCOUNTER 2024-03-17 15:29 | Outpatient (CLI) | payer MEDICARE, SELFPAY ==
--- NOTE | 2024-03-17 15:30 | XR_ITS ---
WS: [id number] DEXA (DUAL ENERGY X-RAY ABSORPTIOMETRY) Bone mineral density was performed using a [employer] machine. HISTORY: AI use COMPARISON: None available. Lumbar spine BMD (L1-L4): 1.193 g/cm2 T score: 0.1 Z score: 1.5 Total hip BMD: Left: 0.992 g/cm2. T score: -0.1 Z score: 1.3 Right: 0.963 g/cm2. T score: -0.4 Z score: 1.0 10 year probability of a major osteoporotic fracture is 14.6%. XR/XR DEXA axial skeleton* [id number] IMPRESSION: NORMAL BONE MINERAL DENSITY based upon the WHO classification for females.
== END 2024-03-17 15:30 | disposition home or self-care (01) ==
LOC: RAD 15:32
PROVIDERS: PCP Family Medicine; Visit Provider Nurse Practitioner Family
DX: I10 Essential (primary) hypertension (principal); Z79.811 Long term (current) use of aromatase inhibitors
CPT/HCPCS: 77080

== ENCOUNTER 2024-03-29 19:13 | Observation (INO) | payer MEDICARE, SELFPAY ==
[2024-03-29] VITALS (7 sets, daily range): BP systolic 147–183; BP diastolic 86–128; PULSE 76–88; RESP 18; TEMP 36.7; O2SAT 91–95
--- NOTE | 2024-03-29 19:20 | XRR_ITS ---
PROCEDURE INFORMATION: Exam: XR Chest Exam date and time: 03/29/2024 7:35 PM Age: 73 years old Clinical indication: Cough and other: Weakness; Prior surgery; Surgery date: 6+ months; Surgery type: Oscar breast TECHNIQUE: Imaging protocol: Radiologic exam of the chest. Views: 1 view. COMPARISON: CT chest w con* [id number] 09/25/2023 10:27 AM FINDINGS: Lungs: Bibasilar atelectasis versus infiltrate. Pleural spaces: Unremarkable. No pleural effusion. No pneumothorax. Heart/Mediastinum: Cardiomegaly and pulmonary vascular congestion. Vasculature: Aortic atherosclerotic calcifications. Bones/joints: Unremarkable. XR/XR chest 1V portable [id number] IMPRESSION: 1. Cardiomegaly and pulmonary vascular congestion. 2. Bibasilar atelectasis versus infiltrate. 3. Aortic atherosclerotic calcifications.
--- NOTE | 2024-03-29 19:20 | CTR_ITS ---
PROCEDURE INFORMATION: Exam: CT Head Without Contrast Exam date and time: 03/29/2024 8:13 PM Age: 73 years old Clinical indication: Stroke-like symptoms; Dizziness/giddiness; Additional info: Symptoms of acute stroke/ fall/dizziness TECHNIQUE: Imaging protocol: Computed tomography of the head without contrast. Radiation optimization: All CT scans at this facility use at least one of these dose optimization techniques: automated exposure control; mA and/or kV adjustment per patient size (includes targeted exams where dose is matched to clinical indication); or iterative reconstruction. Other technique: STROKE PROTOCOL was implemented. COMPARISON: No relevant prior studies available. RADIATION DOSE METRICS: Total DLP (mGy-cm): 1080.38 FINDINGS: Brain: Moderate diffuse white matter disease likely reflecting chronic microvascular ischemic changes. Cerebral ventricles: No ventriculomegaly. Paranasal sinuses: Visualized sinuses are unremarkable. No fluid levels. Mastoid air cells: Visualized mastoid air cells are well aerated. Bones: Unremarkable. No acute fracture. Soft tissues: Unremarkable. CT/CT head thrombolytic [id number] IMPRESSION: Negative for intracranial hemorrhage or mass effect ASSESSMENT: ASPECTS ([place] Stroke Program Early CT Score) is 10.
--- NOTE | 2024-03-29 19:24 | W.ED.FALL ---
HPI - Fall General: Chief Complaint: Fall Stated Complaint: WEAKNESS Time Seen by Provider: 03/29/24 19:15 History of Present Illness: 69-year-old female brought in via EMS. Patient has episode of dizziness and a bit of unbalanced. It happened around 5:30 PM. They report the dizziness started around 5 after she took some Mucinex for cough. Patient does have a prior history of a stroke with no residuals. Her reports she had to help her walk little bit because she was little off balance. Patient did have a fall but denied hitting her head. Associated symptoms-after fall: Denies abdominal pain Related Data Home Medications Medication Instructions Recorded Confirmed aspirin 81 mg tablet,delayed 81 mg PO DAILY 03/04/22 03/10/24 release ottujooh-zpy-ugvl-FA-Ca carb-vit K 1 tab PO DAILY 07/28/22 03/10/24 18 mg iron-400 mcg-500 mg tablet Previous Rx's Medication Instructions Recorded ketorolac 10 mg tablet 10 mg PO Q8H PRN pain #14 tabs 02/26/23 gabapentin 300 mg capsule See Rx Instructions .Route 06/16/23 .COMPLEX #90 caps anastrozole 1 mg tablet See Rx Instructions .Route 03/03/24 .COMPLEX #30 tabs Allergies Allergy/AdvReac Type Severity Reaction Status Date / Time No Known Allergies Allergy Verified 03/29/24 19:24 Review of Systems Const: Denies: fever(s) or chills Eyes: Denies: change in vision or blurry vision Resp: Reports: non-productive cough; Denies: dyspnea or productive cough GI: Denies: abdominal pain, nausea or vomiting Neuro: Reports: dizziness PFSH ED PFSH: Medical History Kidney stones Breast cancer HTN (hypertension) with goal to be determined Surgical History History of appendectomy History of hysterectomy History of knee surgery Bilateral Social History Smoking and tobacco/nicotine status: never used tobacco/nicotine Female Reproductive History: Spontaneous abortions: No Physical Exam Const: COMMON NORMALS: no acute distress, average body habitus and patient oriented x3 Eye: COMMON NORMALS: Equal, round and reactive pupils present, EOMs intact bilaterally and normal visual pina by confrontation PUPIL: Yes Equal, round and reactive pupils present Resp: COMMON NORMALS: normal respiratory effort and No retractions Cardio: COMMON NORMALS: regular rate and regular rhythm RATE: regular rate RHYTHM: regular rhythm GI: COMMON NORMALS: Soft to palpation and non-tender PALPATION: Yes Soft to palpation Neuro: COMMON NORMALS: patient oriented x3, moves all extremities, no focal motor deficits and no sensory deficits noted Psych: COMMON NORMALS: mental status grossly normal, Normal thought process present and cooperative THOUGHT PROCESS: Normal thought process present Skin: COMMON NORMALS: no rashes or lesions noted GENERAL SKIN EXAM: no rashes or lesions noted Course Vital Signs: Vital signs: Vital Signs Temperature 98.0 F 03/29/24 19:14 Pulse Rate 82 03/29/24 22:30 Respiratory Rate 18 03/29/24 19:14 Blood Pressure 147/93 03/29/24 22:30 Pulse Oximetry 94 03/29/24 22:30 Oxygen Delivery Me thod Room Air 03/29/24 20:30 MDM - Fall Medical Decision Making Patient's diagnostic studies were ordered reviewed and interpreted by me. Patient initial presentation had a NIH score is 0. With a negative head CT. Patient needed to get up to urinate. When nurses went in to evaluate her she had had an abrupt onset of some left-sided facial droop and some dysarthria. I did obtain a CTA at that point which was also negative. Patient's symptoms seem to resolve rapidly and were exacerbated by her standing. She did have some slight residual facial droop but also appears now maybe she might have some forehead involvement which may indicate more of a palsy versus a TIA versus a stroke. I did have a stroke alert and discussed it with neurologist Dr. Gutierrez. He felt that if there was a negative CTA we will just admit her to the hospital for further evaluation and possible even a cardiology consult. Discussed with hospitalist Dr. Pritchard who accepted patient for further inpatient management. Patient was stable upon transfer to the floor. Lab Data 03/29/24 19:50 03/29/24 19:50 Radiology Impressions Chest X-Ray 03/29/24 19:20 IMPRESSION: 1. Cardiomegaly and pulmonary vascular congestion. 2. Bibasilar atelectasis versus infiltrate. 3. Aortic atherosclerotic calcifications. Head CT 03/29/24 19:20 IMPRESSION: Negative for intracranial hemorrhage or mass effect ASSESSMENT: ASPECTS ([place] Stroke Program Early CT Score) is 10. ADDENDUM: 03/29/242041 THIS REPORT CONTAINS FINDINGS THAT MAY BE CRITICAL TO PATIENT CARE. The findings were verbally communicated via telephone conference with SALONI FONG at 8:40 PM [employer] on 03/29/2024. The findings were acknowledged and understood. Head/Neck CTA 03/29/24 20:54 IMPRESSION: 1. No acute abnormality on unenhanced CT of the head. 2. Atherosclerosis without hemodynamically significant stenosis. IMPRESSION: Mild atherosclerosis without hemodynamically significant stenosis. REFERENCES: NASCET CRITERIA. The degree of stenosis in the cervical segment of the internal carotid artery is based on NASCET criteria. Normal is no stenosis. Mild is less than 50% stenosis. Moderate is 50-69% stenosis. Severe is 70% to 99% stenosis. Total occlusion is no detectable patent lumen. ADDENDUM: 03/29/242134 COMMENT: THIS REPORT CONTAINS FINDINGS THAT MAY BE CRITICAL TO PATIENT CARE. The exam findings were verbally communicated by me to SALONI FONG via telephone conference at 9:33 PM [employer] on 03/29/2024. The findings were acknowledged and understood. Laboratory Results WBC 4.95 10^3/uL (3.29-11.43) 03/29/24 19:50 RBC 4.26 10^6/uL (3.85-5.65) 03/29/24 19:50 Hgb 12.50 g/dL (11.27-16.99) 03/29/24 19:50 Hct 39.6 % (36-47) 03/29/24 19:50 MCV 93.0 fl (85-98) 03/29/24 19:50 MCH 29.3 pg (27-33) 03/29/24 19:50 MCHC 31.6 g/dL (30-55) 03/29/24 19:50 RDW 13.4 % (12.1-15.1) 03/29/24 19:50 Plt Count 187 10^3/cmm (157-399) 03/29/24 19:50 MPV 11.2 fL (7.4-10.4) H 03/29/24 19:50 Neut % (Auto) 79.2 % 03/29/24 19:50 Lymph % (Auto) 7.1 % 03/29/24 19:50 [place] % (Auto) 11.5 % 03/29/24 19:50 Eos % (Auto) 1.4 % 03/29/24 19:50 Baso % (Auto) 0.4 % 03/29/24 19:50 Neut # (Auto) 3.92 10^3/uL (1.8-7.7) 03/29/24 19:50 Lymph # (Auto) 0.4 10^3/uL (0.8-4.8) L 03/29/24 19:50 [place] # (Auto) 0.6 10^3/uL (0.2-0.9) 03/29/24 19:50 Eos # (Auto) 0.1 10^3/uL (0.0-0.8) 03/29/24 19:50 Baso # (Auto) 0.0 10^3/uL (0.0-0.1) 03/29/24 19:50 Nucleated RBC % (auto) 0 % 03/29/24 19:50 Nucleated RBCs # 0.0 /100WBC 03/29/24 19:50 PT 13.10 SECONDS (12.1-14.9) 03/29/24 19:50 INR 0.93 (0.8-1.2) 03/29/24 19:50 APTT 35.2 SECONDS (23.9-36.7) 03/29/24 19:50 Sodium 139 mmol/L (136-145) 03/29/24 19:50 Potassium 4.0 mmol/L (3.5-5.1) 03/29/24 19:50 Chloride 101 mmol/L (98-107) 03/29/24 19:50 Carbon Dioxide 27 mmol/L (22-29) 03/29/24 19:50 Anion Gap 15.0 (5-19) 03/29/24 19:50 BUN 15 mg/dL (8-23) 03/29/24 19:50 Creatinine 0.8 mg/dL (0.5-0.9) 03/29/24 19:50 GFR Calculation Not Reportable 03/29/24 19:50 Glucose 101 mg/dL (65-115) 03/29/24 19:50 POC Glucose 112 mg/dL (70-110) H 03/29/24 20:58 Calculated Osmolality 289 mOsm/kg (285-295) 03/29/24 19:50 Calcium 9.0 mg/dL (8.5-10.5) 03/29/24 19:50 Total Bilirubin 0.2 mg/dL (0.15-1.2) 03/29/24 19:50 AST 18 U/L (0-32) 03/29/24 19:50 ALT 11 U/L (0-33) 03/29/24 19:50 Alkaline Phosphatase 79 U/L (35-105) 03/29/24 19:50 Total Protein 7.2 g/dL (6.6-8.7) 03/29/24 19:50 Albumin 4.1 g/dL (3.5-5.2) 03/29/24 19:50 Globulin 3.1 g/dL (1.3-4.6) 03/29/24 19:50 Urine Color Yellow (Yellow) 03/29/24 21:20 Urine Appearance Clear (CLEAR) 03/29/24 21:20 Urine pH 5.0 (5-7) 03/29/24 21:20 Ur Specific [place] 1.040 (1.005-1.030) H 03/29/24 21:20 Urine Protein Trace (Negative) A 03/29/24 21:20 Urine Glucose (UA) Negative (Normal) 03/29/24 21:20 Urine Ketones Negative (Negative) 03/29/24 21:20 Urine Blood Negative (Negative) 03/29/24 21:20 Urine Nitrate Negative (Negative) 03/29/24 21:20 Urine Bilirubin Negative (Negative) 03/29/24 21:20 Urine Urobilinogen 0.2 mg/dL (Negative) 03/29/24 21:20 Ur Leukocyte Esterase Negative (Negative) 03/29/24 21:20 Urine RBC 0-2 /hpf (0-2) 03/29/24 21:20 Urine WBC 11-20 /hpf (0-5) H 03/29/24 21:20 Ur Squamous Epith Cells 0-5 /hpf (0-5) 03/29/24 21:20 Amorphous Sediment Not Reportable 03/29/24 21:20 Urine Bacteria None seen /hpf (NONE) 03/29/24 21:20 Hyaline Casts 2.87 /lpf 03/29/24 21:20 Urine Opiates Screen Negative ng/mL (Negative) 03/29/24 21:20 Ur Barbiturates Screen Negative ng/mL (Negative) 03/29/24 21:20 Ur Phencyclidine Scrn Negative ng/mL (Negative) 03/29/24 21:20 Ur Amphetamines Screen Negative ng/mL (Negative) 03/29/24 21:20 U Benzodiazepines Scrn Negative ng/mL (Negative) 03/29/24 21:20 Urine Cocaine Screen Negative ng/mL (Negative) 03/29/24 21:20 U Marijuana (THC) Screen Negative ng/mL (Negative) 03/29/24 21:20 Influenza Type A Ag negative (Negative) 03/29/24 19:37 Influenza Type B Ag negative (Negative) 03/29/24 19:37 SARS-CoV-2 Ag (Rapid) Negative (Negative) 03/29/24 19:37 All radiology interpretation(s) finalized by discharge Discharge Plan Discharge Patient Disposition: Placed in Observation Clinical Impression: Dizziness, Facial droop Coding Level of Care Code ED System Support Administrator for Moshe Banda
--- NOTE | 2024-03-29 19:31 | ECG_ITS ---
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 Measurements Intervals [place] Rate: 78 P: 33 CO: 145 QRS: -14 QRSD: 87 T: 49 QT: 364 QTc: 415 Interpretive Statements SINUS RHYTHM MODERATE VOLTAGE CRITERIA FOR LVH, CONSIDER NORMAL VARIANT [MEETS CRITERIA IN ONE OF: R(aVL), S(V1), R(V5), R(V5/V6)+S(V1)] No previous ECG available for comparison Electronically Signed On 03-29-2024 21:11:57 INTERNAL AFFAIRS INVESTIGATOR by Naresh Pate M.D. [email or web address]
[2024-03-29 20:18] LABS: Basophils % 0.4 %; Eosinophils # 0.1 10^3/uL (0.0-0.8); Eosinophils % 1.4 %; Hematocrit 39.6 % (36-47); Lymphocytes # 0.4 10^3/uL (0.8-4.8); Lymphocytes % 7.1 %; Mean Corpuscular HGB Conc 31.6 g/dL (30-55); Mean Corpuscular Hemoglobin 29.3 pg (27-33); Mean Platelet Volume 11.2 fL (7.4-10.4); Monocytes # 0.6 10^3/uL (0.2-0.9); Monocytes % 11.5 %; Neutrophils # 3.92 10^3/uL (1.8-7.7); Neutrophils % 79.2 %; Nucleated Red Blood Cells % 0 %; Platelet Count 187 10^3/cmm (157-399); Red Blood Count 4.26 10^6/uL (3.85-5.65); Red Cell Distribution Width 13.4 % (12.1-15.1); White Blood Count 4.95 10^3/uL (3.29-11.43)
[2024-03-29 20:18] LABS: Influenza A by IFA negative (Negative); Influenza B by IFA negative (Negative)
[2024-03-29 20:24] LABS: SARS Covid-2 Antigen Negative (Negative)
[2024-03-29 20:32] LABS: INR 0.93 (0.8-1.2)
[2024-03-29 20:33] LABS: Partial Thromboplastin Time 35.2 SECONDS (23.9-36.7)
[2024-03-29 20:35] LABS: Alanine Aminotransferase 11 U/L (0-33); Albumin Level 4.1 g/dL (3.5-5.2); Alkaline Phosphatase 79 U/L (35-105); Aspartate Amino Transferase 18 U/L (0-32); Blood Urea Nitrogen 15 mg/dL (8-23); Carbon Dioxide 27 mmol/L (22-29); Chloride 101 mmol/L (98-107); Globulin 3.1 g/dL (1.3-4.6); Glucose 101 mg/dL (65-115); Osmolality Calculated 289 mOsm/kg (285-295); Sodium 139 mmol/L (136-145); Total Bilirubin 0.2 mg/dL (0.15-1.2); Total Protein 7.2 g/dL (6.6-8.7)
--- NOTE | 2024-03-29 20:54 | CTR_ITS ---
PROCEDURE INFORMATION: Exam: CTA Head With Contrast, Arteriography Exam date and time: 03/29/2024 9:02 PM Age: 73 years old Clinical indication: Stroke-like symptoms; Other: Facial weakness; Additional info: Left facial weakness TECHNIQUE: Imaging protocol: Computed tomographic angiography of the head with contrast. Exam focused on the arteries. 3D rendering (Not supervised by radiologist): MIP and/or 3D reconstructed images were created by the technologist. Radiation optimization: All CT scans at this facility use at least one of these dose optimization techniques: automated exposure control; mA and/or kV adjustment per patient size (includes targeted exams where dose is matched to clinical indication); or iterative reconstruction. Contrast material: OMNI 350; Contrast volume: 100 ml; Contrast route: INTRAVENOUS (IV); COMPARISON: CT head thrombolytic [id number] 03/29/2024 8:13 PM RADIATION DOSE METRICS: Total DLP (mGy-cm): 1004.12 FINDINGS: ANTERIOR CIRCULATION: Right internal carotid artery: Intracranial segment is patent with no significant stenosis. No aneurysm. Right middle cerebral artery: No occlusion or significant stenosis. No aneurysm. Right anterior cerebral artery: No occlusion or significant stenosis. No aneurysm. Left internal carotid artery: Intracranial segment is patent with no significant stenosis. No aneurysm. Left middle cerebral artery: No occlusion or significant stenosis. No aneurysm. Left anterior cerebral artery: No occlusion or significant stenosis. No aneurysm. POSTERIOR CIRCULATION: Right vertebral artery: No occlusion or significant stenosis. No aneurysm. Left vertebral artery: No occlusion or significant stenosis. No aneurysm. Basilar artery: The basilar artery is widely patent. Right posterior cerebral artery: No occlusion or significant stenosis. No aneurysm. Left posterior cerebral artery: No occlusion or significant stenosis. No aneurysm. Other arteries: There is mild calcific plaque involving the carotid siphons without significant stenosis. Brain: None unenhanced CT of the brain performed. Mild periventricular white matter changes. No intracranial mass or hemorrhage. No midline shift or mass effect. Cerebral ventricles: No ventriculomegaly. Bones/joints: Unremarkable. No acute fracture. Soft tissues: Unremarkable. Other findings: The bilateral proximal anterior cerebral arteries are widely patent. The bilateral proximal middle cerebral arteries are widely patent. The bilateral proximal posterior cerebral arteries are widely patent. PROCEDURE INFORMATION: Exam: CTA Neck With Contrast Exam date and time: 03/29/2024 9:02 PM Age: 73 years old Clinical indication: Stroke-like symptoms; Other: Facial weakness; Additional info: Left facial weakness TECHNIQUE: Imaging protocol: Computed tomographic angiography of the neck with contrast. Exam focused on the cervical segments of the vasculature. 3D rendering (Not supervised by radiologist): MIP and/or 3D reconstructed images were created by the technologist. Radiation optimization: All CT scans at this facility use at least one of these dose optimization techniques: automated exposure control; mA and/or kV adjustment per patient size (includes targeted exams where dose is matched to clinical indication); or iterative reconstruction. Contrast material: OMNI 350; Contrast volume: 100 ml; Contrast route: INTRAVENOUS (IV); COMPARISON: CT head thrombolytic [id number] 03/29/2024 8:13 PM RADIATION DOSE METRICS: Total DLP (mGy-cm): 1004.12 FINDINGS: Right common carotid artery: No stenosis. No dissection or occlusion. Right internal carotid artery: No stenosis of the extracranial segment. No dissection or occlusion. Right external carotid artery: No occlusion or stenosis of the origin. Left common carotid artery: No stenosis. No dissection or occlusion. Left internal carotid artery: No stenosis of the extracranial segment. No dissection or occlusion. Left external carotid artery: No occlusion or stenosis of the origin. Right vertebral artery: No stenosis. No dissection or occlusion. Left vertebral artery: No stenosis. No dissection or occlusion. Aorta: There is mild calcific plaque involving the visualized thoracic aorta. Soft tissues: Normal. No significant soft tissue swelling. Bones/joints: No acute fracture. Lungs: The visualized lung apices are clear. Other findings: The bilateral subclavian arteries are widely patent. Mild calcific plaque involves the carotid bulbs. The bilateral common carotid arteries are widely patent. The bilateral internal carotid arteries are widely patent. The vertebral arteries are widely patent. CT/CT angio headneck* [id number] IMPRESSION: 1. No acute abnormality on unenhanced CT of the head. 2. Atherosclerosis without hemodynamically significant stenosis. IMPRESSION: Mild atherosclerosis without hemodynamically significant stenosis. REFERENCES: NASCET CRITERIA. The degree of stenosis in the cervical segment of the internal carotid artery is based on NASCET criteria. Normal is no stenosis. Mild is less than 50% stenosis. Moderate is 50-69% stenosis. Severe is 70% to 99% stenosis. Total occlusion is no detectable patent lumen.
[2024-03-29 21:02] LABS: Glucose Point of Care 112 mg/dL (70-110)
[2024-03-29] MEDS: iohexol 350 mg/mL 500 mL Btl (per mL) IV (21:09)
[2024-03-29 21:33] LABS: Bilirubin Urine Negative (Negative); Blood Urine Negative (Negative); Glucose Urine UA Negative (Normal); Ketones Urine Negative (Negative); Leukocyte Esterase Urine Negative (Negative); Nitrate Urine Negative (Negative); Protein Urine Trace (Negative); Urine Appearance Clear (CLEAR); Urine Color Yellow (Yellow); Urobilinogen Urine 0.2 mg/dL (Negative)
[2024-03-29 21:35] LABS: Add Urine Microscopic? YES; Bacteria Urine None Seen /hpf; Hyaline Casts Urine 2.87 /lpf; RBC Urine 0-2 /hpf (0-2); Squamous Epithelial Cell Urine 0-5 /hpf (0-5)
[2024-03-29 21:40] LABS: Amphetamines Screen Urine Negative (Negative); Barbiturates Screen Urine Negative (Negative); Benzodiazepines Screen Urine Negative (Negative); Cocaine Screen Urine Negative (Negative); Opiate Screen Urine Negative (Negative); PCP Screen Urine Negative (Negative); THC Screen Urine Negative (Negative)
[2024-03-29 22:07] LABS: UA Slide Review UA Slide Review Perf
--- NOTE | 2024-03-29 22:12 | P.HP_ITS ---
Providers/Chief Complaint 2 Primary Care Provider: Demarcus Zamora Chief Complaint: WEAKNESS History of Present Illness Teresa Eid is a 73 year old female with history of breast cancer, chronic pain from shingles, previous CVA, presented with chief complaint of feeling dizzy and swaying towards her left side. Family is at the bedside stating that patient fell off the toilet, when she was trying to get towards at the room she was swaying to her left side that prompted her visit in the ER, her NIH score was 0 on initial evaluation however when patient again tried to walk she had dysarthria, facial droop and swayed towards her left side, code stroke was called at that point CTA head and neck CT head unremarkable. At the time of my evaluation patient is hemodynamically stable currently on room air, NIH 0 no active chest pain or shortness of breath. Patient is describing her dizziness as room spinning around her. Review of Systems 2 Const: Denies: fever(s) Eyes: Denies: change in vision ENMT: Denies: throat pain Card: Denies: chest pain Resp: Denies: dyspnea GI: Denies: abdominal pain Medications/Allergies Home Medications Medication Instructions Recorded Confirmed Last Taken Type aspirin 81 mg tablet,delayed 81 mg PO DAILY 03/04/22 03/10/24 07/29/22 History release tpewifem-qqe-muty-FA-Ca carb-vit K 1 tab PO DAILY 07/28/22 03/10/24 07/29/22 History 18 mg iron-400 mcg-500 mg tablet ketorolac 10 mg tablet 10 mg PO Q8H PRN pain #14 tabs 02/26/23 03/10/24 Unknown Rx gabapentin 300 mg capsule See Rx Instructions .Route 06/16/23 03/10/24 Unknown Rx .COMPLEX #90 caps anastrozole 1 mg tablet See Rx Instructions .Route 03/03/24 03/10/24 Unknown Rx .COMPLEX #30 tabs Allergies Allergy/AdvReac Type Severity Reaction Status Date / Time No Known Allergies Allergy Verified 03/29/24 19:24 PFSH Acute 2 PFSH: Medical History Kidney stones Breast cancer HTN (hypertension) with goal to be determined Surgical History History of appendectomy History of hysterectomy History of knee surgery Bilateral Social History Smoking and tobacco/nicotine status: never used tobacco/nicotine Female Reproductive History: Spontaneous abortions: No Vitals/I&O/Wt Last Vital Signs Temp 98.0 F 03/29/24 19:14 Pulse 78 03/29/24 19:14 Resp 18 03/29/24 19:14 BP 183/86 03/29/24 19:14 Pulse Ox 91 03/29/24 19:14 O2 Del Method Room Air 03/29/24 19:14 03/29/24 03/29/24 03/29/24 06:59 14:59 22:59 Intake Total 100 / 100 Balance 100 / 100 Physical Exam 2 Narrative: NIH 0 No active focal deficit No sign of meningitis Pleasant cooperative No sign of vertigo at the time of evaluation GCS 15 Hemodynamically stable S1, S2 Abdomen soft Euvolemic No active focal deficit Data 03/29/24 19:50 03/29/24 19:50 A&P Assessment and plan (1) Breast cancer: (2) Facial droop: (3) Dizziness: (4) HTN (hypertension) with goal to be determined: Plan TIA Aspirin and Plavix dual antiplatelet therapy for 20 days Start high intensity statins Request B12 TSH hemoglobin A1c NIH 0 at the time of evaluation I do not think patient warrants MRI head at this point Will request PT OT ST Patient may need antihypertensive regimen at the time of discharge Chronic pain secondary to herpes continue gabapentin Full code Cardiac DVT prophylaxis on board Attestations 2 Medical Necessity Statement*: Anticipating discharge within 48 hours Diagnoses Breast cancer C50.919 Facial droop R29.810 Dizziness R42 HTN (hypertension) with goal to be determined I10
[2024-03-30] VITALS (12 sets, daily range): BP systolic 110–158; BP diastolic 63–95; PULSE 62–85; RESP 15–18; TEMP 36.9–37.4; O2SAT 88–96
[2024-03-30 00:38] LABS: Thyroid Stimulating Hormone 0.55 uIU/mL (0.27-4.20); Vitamin B12 825 pg/mL (232-1245)
--- NOTE | 2024-03-30 01:06 | PC.NURSE ---
SCD refusal patient was ordered SCD's to be worn, patient declined use of them. this nurse educated the patient on the purpose of the device, patient explained that she knows what they are for, has the device and wraps at home after a previous surgery and does not want to wear them.
[2024-03-30] MEDS: gabapentin 300 mg Capsule 600 MG PO ×3 (01:18→17:03)
[2024-03-30] MEDS: benzonatate 100 mg Capsule 200 MG PO (01:18)
[2024-03-30] MEDS: enoxaparin 40 mg/0.4 mL Syringe SUBCUT (01:18)
[2024-03-30 05:51] LABS: Basophils % 0.5 %; Hematocrit 41.2 % (36-47); Lymphocytes # 0.7 10^3/uL (0.8-4.8); Lymphocytes % 17.1 %; Mean Corpuscular HGB Conc 30.3 g/dL (30-55); Mean Corpuscular Hemoglobin 28.7 pg (27-33); Mean Corpuscular Volume 94.7 fl (85-98); Mean Platelet Volume 11.5 fL (7.4-10.4); Monocytes # 0.7 10^3/uL (0.2-0.9); Monocytes % 16.9 %; Neutrophils # 2.51 10^3/uL (1.8-7.7); Neutrophils % 64.2 %; Nucleated Red Blood Cells % 0 %; Platelet Count 170 10^3/cmm (157-399); Red Blood Count 4.35 10^6/uL (3.85-5.65); Red Cell Distribution Width 13.3 % (12.1-15.1); White Blood Count 3.91 10^3/uL (3.29-11.43)
[2024-03-30 06:14] LABS: Anion Gap 15.9 (5-19); Blood Urea Nitrogen 13 mg/dL (8-23); Calcium 8.7 mg/dL (8.5-10.5); Carbon Dioxide 26 mmol/L (22-29); Chloride 99 mmol/L (98-107); Creatinine Clr Calc Pharmacy 58.7296; Glucose 99 mg/dL (65-115); Magnesium 2.1 mg/dL (1.7-2.3); Osmolality Calculated 284 mOsm/kg (285-295); Potassium 3.9 mmol/L (3.5-5.1); Sodium 137 mmol/L (136-145)
--- NOTE | 2024-03-30 06:25 | PC.NURSE ---
NEW OXYGEN REQUIREMENT patient was received on the floor saturating well on RA, as reflected in ER and floor vital signs. at 0400 vitals this senior writer was alerted by SALES ENABLEMENT LEAD that the patient was saturating between 83-85% on RA. the patient was placed on 2L NC and the oxygen level came up to 93%.
[2024-03-30] MEDS: lisinopril 10 mg Tablet 5 MG PO (08:53)
[2024-03-30] MEDS: anastrozole 1 mg Tablet PO (08:53)
[2024-03-30] MEDS: atorvastatin 40 mg Tablet 80 MG PO (08:53)
[2024-03-30] MEDS: aspirin 81 mg EC Tablet PO (08:53)
[2024-03-30] MEDS: clopidogrel 75 mg Tablet PO (08:53)
--- NOTE | 2024-03-30 09:37 | PC.CHAP ---
Pastoral Care Encounter/Spiritual Assessment Type of Contact [] Declined resource engineer visit [] Patient/Family/Request visit [] Outpatient visit [] Follow-up visit [] Physician referral [] Code/Alert [x] Routine visit [] Staff referral [] Actively dying [] Patient sleeping [] Family support [] [] Out of room [] Palliative care [] [] Receiving care in room [] Pre-surgical visit [] Trauma [] Long length of stay [] ICU visit [] Other: Relational/Emotional Strength [x] Patient feels connected with others/family/visitors/staff [] Distress [] Loneliness/isolation [] Abandonment Spirituality of Patient [x] Person of Farzaneh [] Attends Restorationism of their [place] [x] Believes in Prayer [] Reads Bible or Moravian materials [] There are Spiritual issues to be addressed Lead Welder Interventions [x] Prayer [x] Active listening [x] Non-anxious presence [x] Spiritual/emotional support [] Crisis/trauma care [] Spiritual counseling [] Bereavement support [] Provided bereavement packet [] Provided Bible/devotional materials [] Provided toy/stuffed animal, coloring book to patient or family member [] Provided Communion [] Anointing/[place] [] Salvation [x] Completed spiritual assessment [] Other: Impact on Illness or Injury [] Angry [] Fearful [] Anxious [] Often cries [] Exhaustion [] Unable to work [] Unable to attend mu-ism [] Unable to walk/stand [] Unable to read [] Unable to drive [] Unable to eat/drink [] Unable to sleep [] Unable to be with family [] Patient intubated [] Other: Summary Time spent with patient 5 min
[2024-03-30 14:22] LABS: Troponin T (5th) Once 16 ng/L (0-10)
--- NOTE | 2024-03-30 15:30 | PC.NURSE ---
Prosthetist- rounded on patient today. Patient and family given stroke education booklet. Patient doing well, wants to go home.
[2024-03-30 15:52] LABS: Adenovirus Not Detected (NOT DETECT); Chlamydia Pneumoniae Not Detected (NOT DETECT); Coronavirus 229E,HKU1,NL63,OC4 Not Detected (NOT DETECT); Human Metapneumovirus Not Detected (NOT DETECT); Human Rhinovirus/Enterovirus Not Detected (NOT DETECT); Influenza A Detected (NOT DETECT); Influenza A H1 Not Detected (NOT DETECT); Influenza A H1-2009 Not Detected (NOT DETECT); Influenza A H3 Detected (NOT DETECT); Influenza B Not Detected (NOT DETECT); Mycoplasma Pneumoniae Not Detected (NOT DETECT); Parainfluenza Virus Type 1 Not Detected (NOT DETECT); Parainfluenza Virus Type 2 Not Detected (NOT DETECT); Parainfluenza Virus Type 3 Not Detected (NOT DETECT); Parainfluenza Virus Type 4 Not Detected (NOT DETECT); Respiratory Syncytial Virus A Not Detected (NOT DETECT); Respiratory Syncytial Virus B Not Detected (NOT DETECT); SARS-COV-2 Not Detected (NOT DETECT)
[2024-03-30] MEDS: FUROsemide 10 mg/mL SDV 2mL 20 MG IVP (15:55)
--- NOTE | 2024-03-30 16:12 | P.PN_ITS ---
Subjective 2 Subjective: CT head and CTA head and neck did not show any large vessel occlusion. patient c/o chest discomfort overall related to persistent bouts of coughing. Medications: Reviewed: Yes Vitals/I&O/Wt Last Vital Signs Temp 98.8 F 03/30/24 12:00 Pulse 79 03/30/24 14:00 Resp 18 03/30/24 12:00 BP 110/63 03/30/24 12:00 Pulse Ox 92 03/30/24 13:59 O2 Del Method Nasal Cannula 03/30/24 12:00 O2 Flow Rate 2 03/30/24 13:59 03/30/24 03/30/24 03/30/24 06:59 14:59 22:59 Intake Total 120 / 220 480 / 480 Balance 120 / 220 480 / 480 Weight last 48 hrs Weight 74.616 kg Weight 73.573 kg Weight 73.573 kg Physical Exam 2 Narrative: General: No acute distress, AO x3 HEENT: PERRLA, pupils bilaterally equal and reactive, pallors not present Chest: Normal vesicular breath sounds, no added sounds, equal good air entry bilaterally CVS: S1-S2 regular, no murmurs, no tachycardia, no gallops, no rubs Abdomen: Soft, nontender, no organomegaly, bowel sounds present Neuro: No focal deficits, no facial deformity, AO x3, power 5/5 in all limbs Data 03/30/24 05:21 03/30/24 05:21 A&P Assessment and plan (1) Breast cancer: (2) Facial droop: (3) Dizziness: (4) HTN (hypertension) with goal to be determined: Plan TIA Aspirin and Plavix dual antiplatelet therapy for 20 days Start high intensity statins Request B12 TSH hemoglobin A1c NIH 0 at the time of evaluation I do not think patient warrants MRI head at this point Will request PT OT ST Patient may need antihypertensive regimen at the time of discharge Chronic pain secondary to herpes continue gabapentin Full code Cardiac DVT prophylaxis on board March 30, 2024 CT head, CTA of the head and neck negative for acute stroke. No major vessel occlusion identified. No focal deficits on exam today. Participated with PT and OT. Upon examination today patient was on supplemental O2 at 2 L/min. Home oxygen evaluation was obtained in which patient was noted to be desaturating. Oxygen numbers ranging between 72 to 92% upon exertion. Patient does not typically use oxygen. Reviewed chest x-ray, showing bilateral infiltrates which may be industrial relations representative of edema versus pneumonitis. She has been complaining of persistent cough for 4 to 5 days to the point of giving her chest pain. An extended respiratory viral panel was obtained today which was positive for influenza A PCR. Patient has been started on Tamiflu 75 mg p.o. twice daily. Additionally started on levofloxacin 750mg po daily. Lasix 20mg iv now. Check troponins, BNP and D dimer. CTA chest if D dimer is elevated Attestations 2 Medical Necessity Statement*: hypoxia, cause under evaluation, influenza A pneumonitis Coding Level of Care Code Acute Code for [facility] Fwd Diagnoses Breast cancer C50.919 Facial droop R29.810 Dizziness R42 HTN (hypertension) with goal to be determined I10
--- NOTE | 2024-03-30 16:17 | PC.NURSE ---
Isauro (friend) notified of dx: Influenza A for pt.
[2024-03-30] MEDS: oseltamivir phosphate 75 mg Capsule PO (17:03)
[2024-03-30 18:09] LABS: D Dimer 1.16 ug/mLFEU (0-0.59)
[2024-03-30 18:19] LABS: Troponin T (5th) Once 14 ng/L (0-10)
[2024-03-30 18:31] LABS: NT Pro B Type Natriuretic Pept 205 pg/mL (0-125)
--- NOTE | 2024-03-30 23:45 | USCV_ITS ---
eTresa Eid Age: 73 Gender: F : 1950 Exam Date: 03/30/2024 00:25 Ordering Phys: Tim Pritchard MD Technologist: MERYL [place] [facility] [place]ication: dizziness (TIA), history of prior CVA, BUBBLE STUDY is ordered. BP: 172 / 128 HR: 65 Rhythm: Sinus Technical Quality: Adequate MEASUREMENTS (Male / Female) Normal Values 2D ECHO LV Diastolic Diameter PLAX 4.3 cm 4.2 - 5.9 / 3.9 - 5.3 cm IVS Diastolic Thickness 1.6 cm 0.6 - 1.0 / 0.6 - 0.9 cm IVS Systolic Thickness 2.0 cm LVPW Diastolic Thickness 1.3 cm 0.6 - 1.0 / 0.6 - 0.9 cm LVPW Systolic Thickness 1.8 cm LVOT Diameter 2.0 cm LV Ejection Fraction 2D Teich 67.0 % LV Ejection Fraction MOD 4C 48.1 % LV Ejection Fraction MOD 2C 64.1 % LV Ejection Fraction 2C AL 66.4 % LA Diameter 4.1 cm Aorta at Sinotubular Diameter 3.2 cm IVC Diameter 1.4 cm M-MODE LA Ao Ratio MM 1.2 AV Cusp Separation MM 2.3 cm DOPPLER AV Peak Velocity 134.0 cm/s LVOT Peak Velocity 107.0 cm/s AV Area Cont Eq vti 3.7 cm squared AV Area Cont Eq pk 2.5 cm squared MV Peak Velocity 139.0 cm/s MV Area PHT 3.1 cm squared Mitral E to A Ratio 0.7 PV Peak Velocity 89.0 cm/s FINDINGS Left Ventricle Normal left ventricular size and systolic function, EF 64%.. Mild coronary left-ventricular hypertrophyGrade I/IV diastolic dysfunction (abnormal relaxation filling pattern), normal to mildly elevated filling pressures. . Right Ventricle The right ventricle is normal in size and function. Right Atrium The right atrium is normal in size. Left Atrium Saline contrast injection revealed no evidence of any right left shunt Mitral Valve Mild mitral valve regurgitation. Mild mitral annular calcification Aortic Valve Mild aortic valve regurgitation. Tricuspid Valve No gross abnormalities noted Pulmonic Valve No gross abnormalities noted Pericardium Normal pericardium without effusion. Aorta Normal ascending aorta dimension. IVC Normal inferior vena cava. CONCLUSIONS Normal left ventricular size and systolic function, EF 64%.. Mild coronary left-ventricular hypertrophyGrade I/IV diastolic dysfunction (abnormal relaxation filling pattern), normal to mildly elevated filling pressures. . No [id number] shunt by color-flow Doppler examination or by saline contrast injection Mild mitral valve regurgitation. Mild mitral annular calcification. Mild aortic valve regurgitation. There is no pericardial effusion. There are no intracardiac masses. No similar previous studies are available for comparison Dr Darwin Nath MD FACC (Electronically Signed) Final Date: 30 March 2024 08:57 S
[2024-03-31] VITALS (7 sets, daily range): BP systolic 104–144; BP diastolic 69–84; PULSE 63–71; RESP 16–18; TEMP 36.8–37.1; O2SAT 90–99
[2024-03-31] MEDS: enoxaparin 40 mg/0.4 mL Syringe SUBCUT (00:19)
[2024-03-31 05:42] LABS: Basophils % 0.4 %; Eosinophils % 0.5 %; Hematocrit 39.9 % (36-47); Lymphocytes % 12.4 %; Mean Corpuscular HGB Conc 30.8 g/dL (30-55); Mean Corpuscular Hemoglobin 29.6 pg (27-33); Mean Corpuscular Volume 95.9 fl (85-98); Mean Platelet Volume 11.4 fL (7.4-10.4); Monocytes # 0.7 10^3/uL (0.2-0.9); Monocytes % 7.9 %; Neutrophils # 6.48 10^3/uL (1.8-7.7); Neutrophils % 78.4 %; Nucleated Red Blood Cells % 0 %; Platelet Count 174 10^3/cmm (157-399); Red Blood Count 4.16 10^6/uL (3.85-5.65); Red Cell Distribution Width 13.7 % (12.1-15.1); White Blood Count 8.25 10^3/uL (3.29-11.43)
[2024-03-31 06:10] LABS: Alanine Aminotransferase 13 U/L (0-33); Albumin Level 3.5 g/dL (3.5-5.2); Alkaline Phosphatase 71 U/L (35-105); Anion Gap 14.8 (5-19); Aspartate Amino Transferase 24 U/L (0-32); Blood Urea Nitrogen 22 mg/dL (8-23); Calcium 8.6 mg/dL (8.5-10.5); Carbon Dioxide 26 mmol/L (22-29); Chloride 99 mmol/L (98-107); Creatinine Clr Calc Pharmacy 46.7213; Globulin 2.9 g/dL (1.3-4.6); Glucose 105 mg/dL (65-115); Osmolality Calculated 286 mOsm/kg (285-295); Potassium 3.8 mmol/L (3.5-5.1); Sodium 136 mmol/L (136-145); Total Bilirubin 0.2 mg/dL (0.15-1.2); Total Protein 6.4 g/dL (6.6-8.7)
[2024-03-31] MEDS: atorvastatin 40 mg Tablet 80 MG PO (08:35)
[2024-03-31] MEDS: clopidogrel 75 mg Tablet PO (08:35)
[2024-03-31] MEDS: gabapentin 300 mg Capsule 600 MG PO (08:35)
[2024-03-31] MEDS: aspirin 81 mg EC Tablet PO (08:35)
[2024-03-31] MEDS: oseltamivir phosphate 75 mg Capsule PO (08:35)
[2024-03-31] MEDS: anastrozole 1 mg Tablet PO (08:36)
[2024-03-31] MEDS: lisinopril 10 mg Tablet 5 MG PO (08:36)
--- NOTE | 2024-03-31 14:55 | PM.DCS ---
Discharge Providers Date of Admission: 03/29/24 22:15 Date of Discharge: March 31, 2024 Attending Provider at Admission: Tim Pritchard MD Attending Provider at Discharge: Selena Cole MD Primary Care Provider: Demarcus Zamora Diagnoses at Discharge Discharge Diagnosis (1) Breast cancer: Status: Acute (2) Facial droop: Status: Acute (3) Dizziness: Status: Acute (4) HTN (hypertension) with goal to be determined: Status: Acute Reason for Visit Reason for Visit: WEAKNESS Brief History: Teresa Eid is a 73 year old female with history of breast cancer, chronic pain from shingles, previous CVA, presented with chief complaint of feeling dizzy and swaying towards her left side. Family is at the bedside stating that patient fell off the toilet, when she was trying to get towards at the room she was swaying to her left side that prompted her visit in the ER, her NIH score was 0 on initial evaluation however when patient again tried to walk she had dysarthria, facial droop and swayed towards her left side, code stroke was called at that point CTA head and neck CT head unremarkable. Case was discussed with neurology, recommended that patient be on dual antiplatelet therapy with aspirin and Plavix with addition of a high intensity statin for TIA. Recommended follow-up with neurology as outpatient in 3 to 4 weeks. Echocardiogram showed an LVEF of 64%, grade 1 diastolic dysfunction. No [id number] shunt based on echocardiogram. Telemetry monitoring was negative for any underlying arrhythmias. Patient was noted to have hypoxia, new oxygen requirement of 2 L/min during hospital stay. She was additionally complaining of repeated bouts of coughing over the past 4 to 5 days to the point where her ribs were hurting. Initially influenza and COVID antigens were negative, however on PCR testing she returned positive for influenza A PCR. She had Tmax of 99 Fahrenheit. Overall clinical picture was consistent with acute influenza pneumonitis. Chest x-ray had bilateral scattered infiltrates most likely to be veterans employment representative of influenza pneumonitis. She was started on Tamiflu 75 mg p.o. twice daily and given a prescription for albuterol as needed inhalation for any wheezing that may develop. Otherwise supportive management is recommended. Patient feels much improved today and is being discharged in stable condition. Physical Exam Narrative: General: No acute distress, AO x3 HEENT: PERRLA, pupils bilaterally equal and reactive, pallors not present Chest: Normal vesicular breath sounds, no added sounds, equal good air entry bilaterally CVS: S1-S2 regular, no murmurs, no tachycardia, no gallops, no rubs Abdomen: Soft, nontender, no organomegaly, bowel sounds present Neuro: No focal deficits, no facial deformity, AO x3, power 5/5 in all limbs Discharge Data Studies Completed and Pending Completed Studies During Hospitalization Category Date Time Status CT head thrombolytic [id number] Stat Cat Scan 03/29/24 19:20 Completed CTA head neck [CT angio headneck* [id number]] Stat Cat Scan 03/29/24 20:54 Completed XR chest 1V portable [id number] Stat Exams 03/29/24 19:20 Completed CV. echo lmt wo/w bubble [id number] Routine Ultrasound 03/30/24 23:45 Completed Radiology Impressions Chest X-Ray 03/29/24 19:20 IMPRESSION: 1. Cardiomegaly and pulmonary vascular congestion. 2. Bibasilar atelectasis versus infiltrate. 3. Aortic atherosclerotic calcifications. Head CT 03/29/24 19:20 IMPRESSION: Negative for intracranial hemorrhage or mass effect ASSESSMENT: ASPECTS (Bhumi Stroke Program Early CT Score) is 10. ADDENDUM: 03/29/242041 THIS REPORT CONTAINS FINDINGS THAT MAY BE CRITICAL TO PATIENT CARE. The findings were verbally communicated via telephone conference with SALONI FONG at 8:40 PM [employer] on 03/29/2024. The findings were acknowledged and understood. Head/Neck CTA 03/29/24 20:54 IMPRESSION: 1. No acute abnormality on unenhanced CT of the head. 2. Atherosclerosis without hemodynamically significant stenosis. IMPRESSION: Mild atherosclerosis without hemodynamically significant stenosis. REFERENCES: NASCET CRITERIA. The degree of stenosis in the cervical segment of the internal carotid artery is based on NASCET criteria. Normal is no stenosis. Mild is less than 50% stenosis. Moderate is 50-69% stenosis. Severe is 70% to 99% stenosis. Total occlusion is no detectable patent lumen. ADDENDUM: 03/29/243 COMMENT: THIS REPORT CONTAINS FINDINGS THAT MAY BE CRITICAL TO PATIENT CARE. The exam findings were verbally communicated by me to SALONI FONG via telephone conference at 9:33 PM [employer] on 03/29/2024. The findings were acknowledged and understood. Laboratory Results WBC 8.25 10^3/uL (3.29-11.43) 03/31/24 04:46 RBC 4.16 10^6/uL (3.85-5.65) 03/31/24 04:46 Hgb 12.30 g/dL (11.27-16.99) 03/31/24 04:46 Hct 39.9 % (36-47) 03/31/24 04:46 MCV 95.9 fl (85-98) 03/31/24 04:46 MCH 29.6 pg (27-33) 03/31/24 04:46 MCHC 30.8 g/dL (30-55) 03/31/24 04:46 RDW 13.7 % (12.1-15.1) 03/31/24 04:46 Plt Count 174 10^3/cmm (157-399) 03/31/24 04:46 MPV 11.4 fL (7.4-10.4) H 03/31/24 04:46 Neut % (Auto) 78.4 % 03/31/24 04:46 Lymph % (Auto) 12.4 % 03/31/24 04:46 Dewey % (Auto) 7.9 % 03/31/24 04:46 Eos % (Auto) 0.5 % 03/31/24 04:46 Baso % (Auto) 0.4 % 03/31/24 04:46 Neut # (Auto) 6.48 10^3/uL (1.8-7.7) 03/31/24 04:46 Lymph # (Auto) 1.0 10^3/uL (0.8-4.8) 03/31/24 04:46 [place]wey # (Auto) 0.7 10^3/uL (0.2-0.9) 03/31/24 04:46 Eos # (Auto) 0.0 10^3/uL (0.0-0.8) 03/31/24 04:46 Baso # (Auto) 0.0 10^3/uL (0.0-0.1) 03/31/24 04:46 Nucleated RBC % (auto) 0 % 03/31/24 04:46 Nucleated RBCs # 0.0 /100WBC 03/31/24 04:46 PT 13.10 SECONDS (12.1-14.9) 03/29/24 19:50 INR 0.93 (0.8-1.2) 03/29/24 19:50 APTT 35.2 SECONDS (23.9-36.7) 03/29/24 19:50 D-Dimer 1.16 ug/mLFEU (0-0.59) H 03/30/24 17:30 Sodium 136 mmol/L (136-145) 03/31/24 04:46 Potassium 3.8 mmol/L (3.5-5.1) 03/31/24 04:46 Chloride 99 mmol/L (98-107) 03/31/24 04:46 Carbon Dioxide 26 mmol/L (22-29) 03/31/24 04:46 Anion Gap 14.8 (5-19) 03/31/24 04:46 BUN 22 mg/dL (8-23) 03/31/24 04:46 Creatinine 1.0 mg/dL (0.5-0.9) H 03/31/24 04:46 GFR Calculation Not Reportable 03/31/24 04:46 Glucose 105 mg/dL (65-115) 03/31/24 04:46 POC Glucose 112 mg/dL (70-110) H 03/29/24 20:58 Calculated Osmolality 286 mOsm/kg (285-295) 03/31/24 04:46 Calcium 8.6 mg/dL (8.5-10.5) 03/31/24 04:46 Magnesium 2.1 mg/dL (1.7-2.3) 03/30/24 05:21 Total Bilirubin 0.2 mg/dL (0.15-1.2) 03/31/24 04:46 AST 24 U/L (0-32) 03/31/24 04:46 ALT 13 U/L (0-33) 03/31/24 04:46 Alkaline Phosphatase 71 U/L (35-105) 03/31/24 04:46 Troponin T 5th Gen ng/L 14 ng/L (0-10) H 03/30/24 17:30 NT-Pro-B Natriuret Pep 205 pg/mL (0-125) H 03/30/24 17:30 Total Protein 6.4 g/dL (6.6-8.7) L 03/31/24 04:46 Albumin 3.5 g/dL (3.5-5.2) 03/31/24 04:46 Globulin 2.9 g/dL (1.3-4.6) 03/31/24 04:46 Vitamin B12 825 pg/mL (232-1245) 03/29/24 19:50 TSH 0.55 uIU/mL (0.27-4.20) 03/29/24 19:50 Urine Color Yellow (Yellow) 03/29/24 21:20 Urine Appearance Clear (CLEAR) 03/29/24 21:20 Urine pH 5.0 (5-7) 03/29/24 21:20 Ur Specific [place] 1.040 (1.005-1.030) H 03/29/24 21:20 Urine Protein Trace (Negative) A 03/29/24 21:20 Urine Glucose (UA) Negative (Normal) 03/29/24 21:20 Urine Ketones Negative (Negative) 03/29/24 21:20 Urine Blood Negative (Negative) 03/29/24 21:20 Urine Nitrate Negative (Negative) 03/29/24 21:20 Urine Bilirubin Negative (Negative) 03/29/24 21:20 Urine Urobilinogen 0.2 mg/dL (Negative) 03/29/24 21:20 Ur Leukocyte Esterase Negative (Negative) 03/29/24 21:20 Urine RBC 0-2 /hpf (0-2) 03/29/24 21:20 Urine WBC 11-20 /hpf (0-5) H 03/29/24 21:20 Ur Squamous Epith Cells 0-5 /hpf (0-5) 03/29/24 21:20 Amorphous Sediment Not Reportable 03/29/24 21:20 Urine Bacteria None seen /hpf (NONE) 03/29/24 21:20 Hyaline Casts 2.87 /lpf 03/29/24 21:20 Urine Opiates Screen Negative ng/mL (Negative) 03/29/24 21:20 Ur Barbiturates Screen Negative ng/mL (Negative) 03/29/24 21:20 Ur Phencyclidine Scrn Negative ng/mL (Negative) 03/29/24 21:20 Ur Amphetamines Screen Negative ng/mL (Negative) 03/29/24 21:20 U Benzodiazepines Scrn Negative ng/mL (Negative) 03/29/24 21:20 Urine Cocaine Screen Negative ng/mL (Negative) 03/29/24 21:20 U Marijuana (THC) Screen Negative ng/mL (Negative) 03/29/24 21:20 Adenovirus (PCR) Not detected (NOT DETECT) 03/30/24 13:37 C. pneumoniae DNA (PCR) Not detected (NOT DETECT) 03/30/24 13:37 Coronavirus 229E (PCR) Not detected (NOT DETECT) 03/30/24 13:37 Human Metapneumovir PCR Not detected (NOT DETECT) 03/30/24 13:37 Influenza A (H1) PCR Not detected (NOT DETECT) 03/30/24 13:37 Influ A (H1/09) PCR Not detected (NOT DETECT) 03/30/24 13:37 Influenza A (H3) PCR Detected (NOT DETECT) A 03/30/24 13:37 Influenza Type A Ag negative (Negative) 03/29/24 19:37 Influenza Type A (PCR) Detected (NOT DETECT) A 03/30/24 13:37 Influenza Type B Ag negative (Negative) 03/29/24 19:37 Influenza Type B (PCR) Not detected (NOT DETECT) 03/30/24 13:37 M. pneumoniae (PCR) Not detected (NOT DETECT) 03/30/24 13:37 Parainfluenza 1 (PCR) Not detected (NOT DETECT) 03/30/24 13:37 Parainfluenza 2 (PCR) Not detected (NOT DETECT) 03/30/24 13:37 Parainfluenza 3 (PCR) Not detected (NOT DETECT) 03/30/24 13:37 Parainfluenza 4 (PCR) Not detected (NOT DETECT) 03/30/24 13:37 RSV Type A (PCR) Not detected (NOT DETECT) 03/30/24 13:37 RSV Type B (PCR) Not detected (NOT DETECT) 03/30/24 13:37 Entero/Rhino (PCR) Not detected (NOT DETECT) 03/30/24 13:37 SARS-CoV-2 (PCR) Not detected (NOT DETECT) 03/30/24 13:37 SARS-CoV-2 Ag (Rapid) Negative (Negative) 03/29/24 19:37 Vitals Last Vital Signs Temp 98.3 F 03/31/24 13:15 Pulse 64 03/31/24 13:15 Resp 17 03/31/24 11:50 BP 104/69 03/31/24 13:15 Pulse Ox 92 03/31/24 13:15 O2 Del Method Room Air 03/31/24 11:50 O2 Flow Rate 2 03/31/24 08:28 Discharge Plan Discharge Patient Disposition: Home Condition: Stable Prescriptions: New atorvastatin 40 mg Tablet 40 mg PO DAILY 30 Days Qty: 30 0RF clopidogrel 75 mg Tablet 75 mg PO DAILY 30 Days Qty: 30 0RF benzonatate 100 mg Capsule 200 mg PO TID PRN (Reason: Cough) 7 Days Qty: 21 0RF oseltamivir 75 mg Capsule 75 mg PO BID 5 Days Qty: 10 0RF albuterol sulfate 90 mcg/actuation HFA aerosol inhaler 1 inh inhalation Q6H PRN (Reason: shortness of breath or wheezing) Qty: 6.7 0RF Continued aspirin 81 mg tablet,delayed release (DR/EC) 81 mg PO DAILY anastrozole 1 mg tablet See Rx Instructions .ROUTE .COMPLEX Qty: 30 0RF Dose Instruction: TAKE ONE TABLET BY MOUTH DAILY Rx Instructions: TAKE ONE TABLET BY MOUTH DAILY [id number] carb-vit K 18 mg iron-400 mcg-500 mg Tablet 1 tab PO DAILY gabapentin 300 mg Capsule 600 mg PO BID Discharge Orders: Discharge Order (Routine); Ordered 03/31/24 Ordered By: Selena Cole Other Ambulatory Orders: DME: Oxygen (Order) Location: None Selected Ordered By: Selena Cole Occupational Therapy Eval and Treat Outpatient ( DIRECTED) Timeframe: [id number] Facility: [facility] - Location: Occupational Therapy [facility] Ordered By: Selena Cole Referrals: [facility] Outpatient Therapy [Outside] (Occupational therapy has recommended you continue therapy for a couple of weeks. A referral has been sent to [facility] for outpatient OT and they should call you within 3 days to schedule if they have not please call them to schedule. ) Beau Gutierrez MD [Physician] - 3 weeks (TIA We have notified your physician's clinic of the need for a follow-up appointment to be scheduled. If you have not heard from them within the next 2 business days, please call them directly. ) Demarcus Zamora [Primary Care Provider] - 04/07/24 10:45 am (hospital discharge follow up ) Discharge Diet: As Directed and Cardiac Discharge Activity: As per PT/OT instructions Patient Instructions: Benzonatate (By mouth), Atorvastatin (By mouth), Clopidogrel (By mouth), Oseltamivir (By mouth), Using Oxygen at Home (GEN), Opioid Safety, Stroke Stoplight Discharge Attestations Time Spent in Discharge Care*: greater than 30 min Quality Metrics Clinical Quality Measures [ Cerebrovascular Accident { Contraindication to Antithrombotic: None; antithrombotic prescribed; Contraindication to Anticoagulation: Overlap treatment not indicated; Contraindication to Statin: None; Statin prescribed;}] Coding Level of Care Code Acute Code for [facility] Fwd Diagnoses Breast cancer C50.919 Facial droop R29.810 Dizziness R42 HTN (hypertension) with goal to be determined I10
== END 2024-03-31 13:17 | disposition home or self-care (01) ==
LOC: ER 22:29 → MEDSURG 23:20
PROVIDERS: Admitting Provider Internal Medicine; Emergency Provider Student in an Organized Health Care Education/Training Program; PCP Family Medicine; Visit Provider Student in an Organized Health Care Education/Training Program
DX: R42 Dizziness and giddiness (principal); R29.810 Facial weakness; I10 Essential (primary) hypertension; C50.919 Malignant neoplasm of unspecified site of unspecified female breast; G89.29 Other chronic pain; Z86.73 Personal history of transient ischemic attack (TIA), and cerebral infarction without residual deficits; Z79.82 Long term (current) use of aspirin
CPT/HCPCS: 36415; 36416; 70450; 70496; 70498; 71045; 80048; 80053; 80306; 81001; 82607; 82962; 83735; 83880; 84443; 84484; 85025; 85378; 85610; 85730; 87426; 87486; 87581; 87633; 87804; 93005; 94760; 96372; 96374; 97110; 97116; 97161; 97167; 97535; 99285; C8924; G0378; J1650; J1940; J8999

== ENCOUNTER 2024-09-21 09:54 | Oncology outpatient (recurring) (ONCR) | payer MEDICARE, SELFPAY ==
[2024-09-21 10:26] LABS: Hematocrit 43.8 % (36-47); Hemoglobin 13.80 g/dL (11.27-16.99); Mean Corpuscular HGB Conc 31.5 g/dL (30-55); Mean Corpuscular Hemoglobin 29.1 pg (27-33); Mean Corpuscular Volume 92.4 fl (85-98); Nucleated Red Blood Cells % 0 %; Platelet Count 235 10^3/cmm (157-399); Red Blood Count 4.74 10^6/uL (3.85-5.65); White Blood Count 5.11 10^3/uL (3.29-11.43)
[2024-09-21 10:58] LABS: Alanine Aminotransferase 13 U/L (0-33); Albumin Level 4.3 g/dL (3.5-5.2); Alkaline Phosphatase 86 U/L (35-105); Anion Gap 15.3 (5-19); Aspartate Amino Transferase 15 U/L (0-32); Blood Urea Nitrogen 21 mg/dL (8-23); Calcium 9.6 mg/dL (8.5-10.5); Carbon Dioxide 27 mmol/L (22-29); Chloride 106 mmol/L (98-107); Creatinine Clr Calc Pharmacy 57.0588; Globulin 3.4 g/dL (1.3-4.6); Glucose 102 mg/dL (65-115); Osmolality Calculated 301 mOsm/kg (285-295); Potassium 4.3 mmol/L (3.5-5.1); Sodium 144 mmol/L (136-145); Total Protein 7.7 g/dL (6.6-8.7)
== END 2024-10-20 23:59 | disposition home or self-care (01) ==
PROVIDERS: PCP Family Medicine; Visit Provider Nurse Practitioner Family
DX: C50.911 Malignant neoplasm of unspecified site of right female breast (principal); Z17.0 Estrogen receptor positive status [ER+]; Z90.11 Acquired absence of right breast and nipple; Z92.3 Personal history of irradiation; Z79.811 Long term (current) use of aromatase inhibitors
CPT/HCPCS: 36415; 80053; 85025; 99213